=== PATIENT | male | born 1940 | race Caucasian/White ===

== ENCOUNTER → 2024-12-09 09:33 | Outpatient (REF) | payer MEDICARE, BC, SELFPAY | LOC: RCS 09:33 | PROVIDERS: ATTENDING PHYSICIAN Internal Medicine Cardiovascular Disease; FAMILY PHYSICIAN Family Medicine | DX: R06.02 Shortness of breath (principal) | CPT/HCPCS: 93306 ==

== ENCOUNTER → 2024-12-19 11:18 | Outpatient (REF) | payer MEDICARE, BC, SELFPAY ==
[2024-12-19 17:30] LABS: % Basophils 0.7 % (0-2); % Immature Granulocytes 0.4 % (0-0.5); % Lymphocytes 9.6 % (20.5-51.1); % Monocytes 16.7 % (1.7-9.3); % Neutrophils 66.6 % (42.2-75.2); Absolute Basophils 0.1 10^3/uL (0-0.2); Absolute Eosinophils 0.5 10^3/uL (0-0.7); Absolute Lymphocytes 0.8 10^3/uL (1.2-3.4); Absolute Monocytes 1.4 10^3/uL (0.1-0.6); Absolute Neutrophils 5.7 10^3/uL (1.4-6.5); Hematocrit 47.7 % (39.0-52.0); Hemoglobin 15.6 g/dL (13.0-18.0); Mean Corp Hgb Conc. 32.7 g/dL (33.0-37.0); Mean Corpuscular Volume 97.9 fL (80.0-94.0); Mean Platelet Volume 11.2 fL (7.4-10.4); Nucleated Red Blood Cells % 0 % (-); Platelet Count 167 10^3/uL (130-400); Red Blood Cell Count 4.87 10^6/uL (4.70-6.10); Red Cell Dist. Width 14.4 % (11.5-14.5); White Blood Cell Count 8.6 10^3/uL (4.8-10.8)
[2024-12-19 17:41] LABS: Blood Urea Nitrogen 25 mg/dl (9-20); Carbon Dioxide 28 mmol/L (22-30); Chloride 105 mmol/L (98-107); Glucose 86 mg/dl (70-99); HDL Cholesterol 39 mg/dl; LDL Cholesterol, Calculated 101 mg/dl; Sodium 142 mmol/L (135-145); Total Cholesterol 158 mg/dl (50-199); Triglyceride 93 mg/dl (10-149); Very Low Density Lipoprotein 18 mg/dl (0-30); eGFR 48.95
[2024-12-19 18:09] LABS: TSH Reflex To Free T4 1.49 uIU/ml (0.47-4.68)
== END ==
LOC: HWLAB 11:18
PROVIDERS: ATTENDING PHYSICIAN Internal Medicine Cardiovascular Disease; FAMILY PHYSICIAN Family Medicine
DX: E78.49 Other hyperlipidemia (principal); I49.5 Sick sinus syndrome; R06.02 Shortness of breath; I48.0 Paroxysmal atrial fibrillation; J44.9 Chronic obstructive pulmonary disease, unspecified; I89.0 Lymphedema, not elsewhere classified; R73.03 Prediabetes
CPT/HCPCS: 36415; 80048; 80061; 84443; 85025

== ENCOUNTER 2024-12-24 15:54 | Inpatient (IN) | payer MEDICARE, BC, SELFPAY ==
[2024-12-24 09:54] VITALS: BP 168/90
[2024-12-24 11:19] VITALS: BP 179/94
[2024-12-24 11:44] VITALS: BMI 27.5
[2024-12-24 12:19] LABS: % Basophils 0.4 % (0-2); % Eosinophils 6.4 % (0-6); % Immature Granulocytes 0.3 % (0-0.5); % Lymphocytes 13.5 % (20.5-51.1); % Monocytes 13.5 % (1.7-9.3); % Neutrophils 65.9 % (42.2-75.2); Absolute Eosinophils 0.5 10^3/uL (0-0.7); Absolute Lymphocytes 1.1 10^3/uL (1.2-3.4); Absolute Monocytes 1.1 10^3/uL (0.1-0.6); Absolute Neutrophils 5.2 10^3/uL (1.4-6.5); Hematocrit 46.5 % (39.0-52.0); Hemoglobin 15.7 g/dL (13.0-18.0); Mean Corp Hgb Conc. 33.8 g/dL (33.0-37.0); Mean Corpuscular Hgb 32.9 pg (27.0-31.0); Mean Corpuscular Volume 97.5 fL (80.0-94.0); Mean Platelet Volume 10.4 fL (7.4-10.4); Nucleated Red Blood Cells % 0 % (-); Platelet Count 163 10^3/uL (130-400); Red Blood Cell Count 4.77 10^6/uL (4.70-6.10); Red Cell Dist. Width 14.1 % (11.5-14.5); White Blood Cell Count 7.9 10^3/uL (4.8-10.8)
[2024-12-24 12:23] LABS: ALT (SGPT) 18 U/L (0-50); AST (SGOT) 24 U/L (17-59); Albumin 3.5 g/dl (3.5-5.0); Alkaline Phosphatase 71 U/L (38-126); Blood Urea Nitrogen 29 mg/dl (9-20); Calcium 8.9 mg/dl (8.4-10.2); Carbon Dioxide 29 mmol/L (22-30); Chloride 106 mmol/L (98-107); Estimated Creatinine Clearance 42 ml/min; Glucose 80 mg/dl (70-99); Potassium 5.5 mmol/L (3.5-5.1); Sodium 139 mmol/L (135-145); Total Bilirubin 1.2 mg/dl (0.2-1.3); eGFR 48.95
[2024-12-24 12:35] LABS: NT-proBNP 1280 pg/ml; Troponin I < 0.012 ng/ml
--- NOTE | 2024-12-24 12:40 | ED.GENMED ---
History of Present Illness
General
Chief Complaint: Breathing Problem
Time Seen by Provider: 12/24/24 11:26
History of Present Illness
History of Present Illness:
84-year-old male with history of A-fib on sotalol, sick sinus syndrome with pacemaker, NPH with shunt in place presenting for shortness of breath. Patient arrives with son who notes for the past 2 months patient has been having increased dyspnea on
exertion, which has been worsening in the past several days. Patient gets very short of breath with minimal exertion around the house. Son notes that he checked his pulse ox at home when he was walking and it was 81%. Patient does note chronic
lower extremity edema and intermittent compliance with his Lasix. Denies any known history of congestive heart failure. Denies chest pain. Reports some cough, however denies fever. Denies additional acute medical complaints.
Phy Exam
Physical Exam
Physical Exam:
General: Well-appearing, no clinical signs of dehydration, nontoxic and in no acute distress
HEENT: protecting airway
Neck: appears supple
CV: Normal heart rate, regular rhythm
Resp: No accessory muscle use, no increased work of breathing, lungs clear to auscultation bilaterally
Abd: Soft and non-distended, no tenderness to palpation
Extremities: No deformities, +2 pitting edema bilaterally
Neuro: alert, no focal neurologic deficit
: deferred
Rectal: deferred
Psych: Normal affect
Skin: Intact
Scores
Heart Failure Risk
Heart Failure Risk Score: Yes
History of Stroke or TIA: No
History of intubation for respiratory distress: No
Heart rate on ED arrival >/= 110: No
SaO2 <90% on arrival on room air: Yes
HR >/=110 during 3min walk test (or too ill to perform test): Yes
ECG has acute ischemic changes: No
Urea >/=12mmol/L (BUN 33.6mg/dL): No
Serum CO2>/=35mmol/L: No
Troponin I or T elevated to MT Level (0.4mg/dL): No
NT-proBNP >/=5,000ng/L (5,000pg/ml): No
HF Risk Score: 3
Admission Status: HIGH RISK 15.9% Consider SNF treatment or admission to hospital
Course
Orders/Labs/Results
Orders:
Orders
12/24/24 11:47
Electrocardiogram (*1) Stat
Reason for Study: Other
Other Reason for Exam: chest pain
EKG- Treatment ONCE
CR Chest - 2 Views Urgent
Comment:
Reason For Exam: VILA
12/24/24 11:49
Complete Blood Count/With Diff Urgent
Comprehensive Metabolic Panel Urgent
NT-proBNP Urgent
Troponin I Urgent
12/24/24 13:41
CT Chest PE Study Urgent
Comment:
Reason For Exam: SOB with exertion, hx afib, hypoxia at home
12/24/24 15:21
Furosemide [Lasix] 40 mg IV NOW STA
12/24/24 15:47
Admit/Transfer Patient As Directed
Co-Sign Provider:
Level of Care: Inpatient admission
Assign to:: Telemetry
Physician / Group: keanu
Diagnosis: chf exacerbation
Reason for Telemetry: Pulmonary Edema
Date to Stop Telemetry: 12/27/24
Time to Stop Telemetry: 11:00
Reason for Hospitalization: chf exacerbation
Expected length of stay greater than two midnights?: Yes
ELOS- Estimated Length of Stay in days: 2
I certify the patient meets the requirements for IP care: Yes
Code Status As Directed
Resuscitation Status: Full Code
PRN Pain Medication Management As Directed
May give lesser potent ordered pain med per pt: Yes
preference::
Protocol:: Medication orders for pain may be administered in a
manner that supports deferring to patient preference
when the pt is:
- Requesting an ordered lesser potent pain medication.
Least to most potent pain medications are defined
as: acetaminophen < NSAID < tramadol < opioids
(morphine, oxycodone, hydromorphone).
- Requesting a lesser dose of the same medication IF
ORDERED.
- Requesting a less intrusive route of administration
if both routes are prescribed by the provider (PO <
IV).
12/27/24 11:00
DC Protocol for Telemetry ONCE
Abnormal Lab Results
12/24/24
11:49
MCV 97.5 H fL
(80.0-94.0)
MCH 32.9 H pg
(27.0-31.0)
Absolute Lymphs (auto) 1.1 L 10^3/uL
(1.2-3.4)
Absolute Monos (auto) 1.1 H 10^3/uL
(0.1-0.6)
Lymphocytes % 13.5 L %
(20.5-51.1)
Monocytes % 13.5 H %
(1.7-9.3)
Eosinophils % 6.4 H %
(0-6)
Potassium 5.5 H mmol/L
(3.5-5.1)
BUN 29 H mg/dl
(9-20)
Creatinine 1.4 H mg/dL
(0.7-1.3)
Total Protein 6.0 L g/dl
(6.3-8.2)
12/24/24 11:49
12/24/24 11:49
Vital Signs
Initial and Last Documented VS:
Initial Vital Signs
Temp Pulse Resp BP Pulse Ox
97.6 F 63 20 168/90 88
12/24/24 09:54 12/24/24 09:54 12/24/24 09:54 12/24/24 09:54 12/24/24 09:54
Last Documented Vital Signs
Temp Pulse Resp BP Pulse Ox
97.6 F 90 16 166/99 94
12/24/24 09:54 12/24/24 15:25 12/24/24 14:30 12/24/24 15:25 12/24/24 12:30
MDM/Problems Addressed
MDM/Problems Addressed:
84-year-old male with history of A-fib on sotalol, sick sinus syndrome with pacemaker, NPH with shunt presenting for dyspnea on exertion. Vital signs are significant for hypertension.
On exam patient is resting comfortably, no acute distress. Symptom presentation is concerning for congestive heart failure given progressive dyspnea on exertion and known underlying cardiac issues, with apparent lower extremity edema. EKG
obtained, paced rhythm. Lower suspicion for infectious source, afebrile, notes very minimal cough. Patient denying any chest pain, without present concern for ACS. On review of EMR, recent outpatient echo 12/07 which showed preserved EF, tricuspid
regurgitation, severe pulmonary hypertension. Will plan for laboratory analysis and chest x-ray imaging
13:30 -patient's x-ray without evidence of volume overload, BNP is elevated. PE is a consideration, no anticoagulation with underlying history of A-fib. Will obtain a CT chest for rule out.
15:20 -CT PE is negative, however there is mention of increased pulmonary vascular markings. Clinically concern for congestive heart failure. Patient had acute desaturation in the ER, to the 80s, requiring O2. Plan for admission for diuresis,
cardiac monitoring, cardiac consultation
*EKG
Interpreted by ED Provider?: Yes
EKG Intrepretation Date: 12/24/24
EKG Intrepretation Time: 12:44
Interpretation: normal
Comparison EKG: no comparison EKG present
Heart Rate: 62
Rate: normal
Rhythm: sinus and other (atrial paced)
[place]: normal axis
QRS Pattern: right bundle branch block
Ischemia: no ischemia
*Critical Care Note
Total Time (30-74mins, 75-104mins- exclusive of procedures): Not Applicable
ED Attending Note
-
Portions of this chart may have been created with voice recognition software.� Occasional wrong word or��sound alike� substitutions may have occurred due to the inherent limitations of voice recognition software.
Discharge Plan
Departure
Patient Disposition: Admit
Date of Disposition: 12/24/24
Time of Disposition: 15:26
Presentation/result/management discussed w/ accepting MD/DO: Hospitalist
Patient with high blood pressure during this ER visit?: No
Condition: Fair
Discharge Problem:
Congestive heart failure, Hypoxia
Interventions
Interventions:
*Risk Screen - Suicide Last Done: 12/24/24 09:54
*General Assessment Last Done: 12/24/24 09:54
*Neglect/Abuse Screening Last Done: 12/24/24 11:44
*ED- Fall Risk Assessment Last Done: 12/24/24 11:44
*ED COVID-19 Vaccine History Last Done: 12/24/24 11:44
ED- Cardiac Assessment Last Done: 12/24/24 11:44
ED- Pulmonary Assessment Last Done: 12/24/24 11:44
[2024-12-24 15:25] VITALS: BP 166/99
[2024-12-24] MEDS: LASIX 40 MG IV (15:25)
--- NOTE | 2024-12-24 15:54 | HPS.HSE ---
Family Physician
-
Family Physician: Brennan Rome
Chief Complaint
-
shortness of breath
History of Present Illness
84-year-old male past medical history of atrial fibrillation, sick sinus syndrome status post pacemaker, severe pulm hypertension, COPD, normal pressure hydrocephalus, hypertension, BPH, dementia, with shunt presenting with shortness of breath.
Patient arrives with son who notes that for the past 2 months patient has been having increased shortness of breath with exertion which has been worsening in the past several days. Patient gets very shortness of breath with minimal exertion. Pulse
ox was 81%. Patient has chronic lower extreme edema and intermittently compliant with Lasix. No prior history of heart failure. No chest pain. Patient has some cough. No fever. He recently saw his student services director Dr. Lund who performed
echocardiogram.
He is a former smoker. Denies alcohol.
Medical History
Past Medical History
Past Medical History: Reports Other (atrial fibrillation, sick sinus syndrome status post pacemaker, severe pulm hypertension, COPD, normal pressure hydrocephalus, hypertension, BPH, dementia, with shunt )
Past Surgical History: Reports None
Social History
Tobacco: Non-smoker
Alcohol: None
Drug: None
Family History
Family History: Not pertinent
Allergies / Home Medications
Allergies reflects when Allergies were last updated in [facility].
Home Medications with original date entered in [facility]
Allergy/Medication List:
Allergies
Allergy/AdvReac Type Severity Reaction Status Date / Time
Horse/Equine Containing Allergy Unknown Verified 12/24/24 09:58
Products
Home Medications
Lactobac no.2-Bifidobac no.1-S. thermo 112.5 billion cell capsule (Visbiome) 1 cap PO DAILY 12/24/24
acetaminophen 325 mg tablet (Tylenol) 325 mg PO HS 12/24/24
albuterol sulfate 90 mcg/actuation aerosol inhaler 2 puff inhalation R Q6HPRN PRN sob 12/24/24
alfuzosin 10 mg tablet,extended release 24 hr 10 mg PO DAILY 12/24/24
amlodipine 2.5 mg tablet (Norvasc) 2.5 mg PO DAILY 12/24/24
cyanocobalamin (vitamin B-12) 1,000 mcg tablet 1,000 mcg PO DAILY 12/24/24
docusate sodium 100 mg capsule (Colace) 100 mg PO QPM 12/24/24
donepezil 10 mg tablet 10 mg PO DAILY 12/24/24
finasteride 5 mg tablet 5 mg PO DAILY 12/24/24
furosemide 40 mg tablet (Lasix) 40 mg PO [facility] 12/24/24
latanoprost 0.005 % eye drops 1 drp BOTH EYES HS 12/24/24
magnesium glycinate 100 mg (as glycinate) tablet 100 mg PO HS 12/24/24
metoprolol tartrate 25 mg tablet 25 mg PO BID 12/24/24
potassium chloride 10 mEq tablet,extended release 10 meq PO [facility] 12/24/24
rivaroxaban 20 mg tablet (Xarelto) 20 mg PO QPM 12/24/24
simethicone 80 mg chewable tablet 80 mg PO HS 12/24/24
sotalol 80 mg tablet 80 mg PO BID 12/24/24
therapeutic multivitamin 1 tab PO DAILY 12/24/24
umeclidinium 62.5 mcg-vilanterol 25 mcg/actuation powdr for inhalation (Anoro Ellipta) 1 inh inhalation R DAILY 12/24/24
Review of Systems
-
History Source: Patient
A 12 point ROS was completed and negative except as noted: Yes
Constitutional: Reports No Symptoms
EENT: Reports No Symptoms
Respiratory: Reports See HPI
Cardiac: Reports See HPI
Abdomen/GI: Reports No Symptoms
: Reports No Symptoms
Musculoskeletal: Reports No Symptoms
Skin: Reports No Symptoms
Neurological: Reports No Symptoms
Endocrine: Reports No Symptoms
Hematologic/Lymphatic: Reports No Symptoms
Psych: Reports No Symptoms
Physical Exam
Vital Signs
Vital Signs
Temp Pulse Resp BP Pulse Ox
97.6 F 90 16 166/99 94
12/24/24 09:54 12/24/24 15:25 12/24/24 14:30 12/24/24 15:25 12/24/24 12:30
Physical Exam
General: Well Developed, Well Nourished and No Apparent Distress
HEENT: NormoCephalic, Moist mucous membranes and Atraumatic
Respiratory: Clear
Cardiac: S1/S2, Regular Rhythm and Peripheral Edema; No Murmur or Rub
GI: Soft, Non Tender, Non Distended and Normal Bowel Sounds; No Organomegaly
Rectal: Deferred by Provider
Musculoskeletal: No Clubbing, No Cyanosis and No Edema
Skin: No Rash
Neuro: Nonfocal/grossly intact
Laboratory Results
-
12/24/24 11:49
12/24/24 11:49
Laboratory Results
Total Bilirubin 1.2 mg/dl (0.2-1.3) 12/24/24 11:49
AST 24 U/L (17-59) 12/24/24 11:49
ALT 18 U/L (0-50) 12/24/24 11:49
Alkaline Phosphatase 71 U/L (38-126) 12/24/24 11:49
Troponin I < 0.012 ng/ml 12/24/24 11:49
Data Reviewed
-
Lab Data: Labs Reviewed by me
Old Records: Reviewed
Impression/Plan
-
IMPRESSION:
PLAN:
# Acute CHF exacerbation due to Lasix noncompliant
# Severe pulmonary hypertension/moderate tricuspid regurgitation
- Cardiac BNP 1200
-EKG shows right bundle branch block, atrial paced rhythm
- Chest x-ray shows no acute process
- CT PE shows no evidence of central pulmonary embolism, pulm interstitial markings, mild nonspecific bilateral hilar and mediastinal lymphadenopathy,
- Check I's and O's, daily weights
- 40 IV Lasix daily
- Cardiology consulted
#Chronic kidney disease
# Hyperkalemia
-Monitor with diuresis
COPD
- Continue inhalers
Paroxysmal atrial fibrillation
- Continue sotalol, metoprolol
- Continue Xarelto
Sick sinus syndrome status post pacemaker
Essential hypertension
- Continue motor pain
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
BPH
- Continue alfuzosin, finasteride
Dementia
- Continue donepezil
Full code
DVT prophylaxis�Xarelto
Cardiac diet
--- NOTE | 2024-12-24 16:15 | CON.CAR ---
Addendum entered and electronically signed by Mendoza Lund DO 12/24/24 17:29:
I saw and examined the patient.
The Fur Blender's note was reviewed and I agree with the note.
Comment:
Patient presenting due to worsening shortness of breath and LE swelling. Notes chronic swelling however increased more recently. Patient recently diagnosed with pulmonary hypertension by echocardiogram however work-up as outpatient is on-going.
Patient denies cp, palpitations, lh, dizziness, near syncope, syncope, focal weakness, pnd or orthopnea. Patient follows with pulmonology for his COPD with planned office visit .
GENERAL: no acute distress
EYE: sclera anicteric
NECK: Supple, no JVD, no carotid bruit appreciated
ENT: normal nose, moist mucosal membranes; 2LNC
CARDIAC: Regular rate and rhythm, +S1/S2,1/6 systolic murmur; no rubs, or gallops
CHEST/PULMONARY: Normal effort, clear breath sounds, no audible wheeze, crackles
ABDOMEN: Soft, without focal tenderness or distention; nontender
NEUROLOGICAL: Alert and oriented x3
SKIN: Warm and dry, no rash; 3+ BL pitting edema
PSYCH: Normal and appropriate interaction.
Telemetry: APVS (RBBB); EKG APVS with RBBB
A/P as below
Patient presenting with acute on chronic shortness of breath with evidence of volume overload by BNP, imaging, and examination. Recent echocardiogram demonstrated normal heart function however was noted to have severe pulmonary hypertension with a
PAP of 81 mmHg and diastolic dysfunction with normal LVEF. Will plan for IV diuresis and begin workup for pulmonary hypertension while inpatient given worsening shortness of breath and elevated pressures. Once euvolemic, will likely plan for right
heart catheterization. Appreciate input by pulmonology regarding pulmonary hypertension as well. Further recommendations to follow testing and evaluation. Please maintain on telemetry, strict intake and outputs, daily weights. I spoke with
patient's daughter, Jackelyn, over the phone regarding his current condition and our plan regarding evaluation and treatment of his shortness of breath. Patient has evidence of volume overload as noted in this documentation and will plan for diuresis
and evaluation for pulmonary hypertension. As discussed in our office visits, pulmonary hypertension is likely the main auto crane driver for patient's shortness of breath and hypoxia however etiology at this time is still unknown. Patient's daughter, Jackelyn,
verbalized understanding, agreed with plan, and voiced appreciated our discussion. I took time to answer all questions.
Original Note:
Consultation
Consultation Request
Date/Time Consultation Requested: 12/24/24
Date/Time Consultation Performed: 12/24/24
Requesting Provider: Dr. Retana in the ER
Performing Provider: Dr. Lund
Reason for Consultation: Acute HF, PHTN
Medical History
-
History of Present Illness:
Patient came to [facility] ER today with acute on chronic SOB and is being admitted with acute HF and cardiology has been consulted. Patient was originally managed at [facility] and had a PPM placed at [place] in about 2012 per patient and then a generator change
09/2023. Patient says that he started with increased SOB a few months ago and originally he thought it was due to his device based on what he was told at a doctor's office. Patient was seen in our office last Monday and reviewed echo that showed PHTN
and patient was recommended PHTN work-up, but patient does not know if he has an appt at [facility] yet or not. Patient returned to the office on Monday for device reprogramming and thinks it made a less than 10% improvement. Patient says that his son
talked to a physician friend who recommended that patient go to the hospital with his ongoing SOB and to expedite his PHTN work-up. Patient thinks his LE edema is worse than baseline, but denies bloating and orthopnea. Patient has no known h/o
rheumatologic disease and has not seen a resort housekeeper, but is scheduled to see one in the office .
PMH:
Chronic HFpEF
PHTN
CKD 3a
COPD
Paroxysmal Afib
Chronic Xarelto OAC
Chronic sotalol therapy
HTN
[employer] PPM
Past Medical History
Past Medical History: Other (in HPI)
Past Surgical History: Cardiac ([employer] PPM)
Social History
Tobacco: Former Smoker
Alcohol: None
Drug: None
Living: Alone
Family History
Family History: Other (son with trisomy 21)
Allergies / Home Medications
Allergy/AdvReac Type Severity Reaction Status Date / Time
Horse/Equine Containing Allergy Unknown Verified 12/24/24 09:58
Products
�Medication �Instructions �Recorded �Confirmed �Type
Lactobac no.2-Bifidobac no.1-S. 1 cap PO DAILY 12/24/24 12/24/24 History
thermo 112.5 billion cell capsule
(Visbiome)
acetaminophen 325 mg tablet 325 mg PO HS 12/24/24 12/24/24 History
(Tylenol)
albuterol sulfate 90 mcg/actuation 2 puff inhalation R Q6HPRN PRN sob 12/24/24 12/24/24 History
aerosol inhaler
alfuzosin 10 mg tablet,extended 10 mg PO DAILY 12/24/24 12/24/24 History
release 24 hr
amlodipine 2.5 mg tablet (Norvasc) 2.5 mg PO DAILY 12/24/24 12/24/24 History
cyanocobalamin (vitamin B-12) 1,000 mcg PO DAILY 12/24/24 12/24/24 History
1,000 mcg tablet
docusate sodium 100 mg capsule 100 mg PO QPM 12/24/24 12/24/24 History
(Colace)
donepezil 10 mg tablet 10 mg PO DAILY 12/24/24 12/24/24 History
finasteride 5 mg tablet 5 mg PO DAILY 12/24/24 12/24/24 History
furosemide 40 mg tablet (Lasix) 40 mg PO [facility] 12/24/24 12/24/24 History
latanoprost 0.005 % eye drops 1 drp BOTH EYES HS 12/24/24 12/24/24 History
magnesium glycinate 100 mg (as 100 mg PO HS 12/24/24 12/24/24 History
glycinate) tablet
metoprolol tartrate 25 mg tablet 25 mg PO BID 12/24/24 12/24/24 History
potassium chloride 10 mEq 10 meq PO [facility] 12/24/24 12/24/24 History
tablet,extended release
rivaroxaban 20 mg tablet (Xarelto) 20 mg PO QPM 12/24/24 12/24/24 History
simethicone 80 mg chewable tablet 80 mg PO HS 12/24/24 12/24/24 History
sotalol 80 mg tablet 80 mg PO BID 12/24/24 12/24/24 History
therapeutic multivitamin 1 tab PO DAILY 12/24/24 12/24/24 History
umeclidinium 62.5 mcg-vilanterol 1 inh inhalation R DAILY 12/24/24 12/24/24 History
25 mcg/actuation powdr for
inhalation (Anoro Ellipta)
Review of Systems
-
History Source: Patient
All other systems: Negative unless noted
Physical Exam
Vital Signs
Temp Pulse Resp BP Pulse Ox
97.6 F 90 16 166/99 94
12/24/24 09:54 12/24/24 15:25 12/24/24 14:30 12/24/24 15:25 12/24/24 12:30
GEN: NAD. AAOx3
HEENT: EOMI, MMM, wearing glasses
LUNGS: 2 L NC. CTA B/L, no audible wheeze
CV: Reg, S1/S2, 1/6 syst LSB, no murmur
ABD: soft, BS+, NT, ND
EXT: +2-3 pitting edema B/L LE to the knees
NEURO: Gross non-focal
SKIN: No rash
Lab Results
12/24/24 11:49
12/24/24 11:49
Troponin I < 0.012 ng/ml 12/24/24 11:49
Cdl-N-Brqqtgcslih Pept 1280 pg/ml 12/24/24 11:49
Impression / Plan
-
PCP: Dr. Vilchis
Card: Dr. Jurado at [facility] and Dr. Lund at [facility]
Impression:
Admitted with SOB 12/24/24
Acute HFpEF
PHTN
CKD 3a
COPD
Paroxysmal Afib
Chronic Xarelto OAC
Chronic sotalol therapy
HTN
[employer] PPM
Hyperkalemia
Echo 12/09/2024: EF 50 to 55%, no WMA, pacemaker wire present in the right heart, moderate TR with severe PHTN and PAP 81 mmHg
Plan:
-Patient came to [facility] ER today with acute on chronic SOB and is being admitted with acute HF and cardiology has been consulted. Patient was originally managed at [facility] and had a PPM placed at [facility] in about 2012 per patient and then a generator change
09/2023. Patient says that he started with increased SOB a few months ago and originally he thought it was due to his device based on what he was told at a doctor's office. Patient was seen in our office last Monday and reviewed echo that showed PHTN
and patient was recommended PHTN work-up, but patient does not know if he has an appt at [facility] yet or not. Patient returned to the office on Monday for device reprogramming and thinks it made a less than 10% improvement. Patient says that his son
talked to a physician friend who recommended that patient go to the hospital with his ongoing SOB and to expedite his PHTN work-up. Patient thinks his LE edema is worse than baseline, but denies bloating and orthopnea. Patient has no known h/o
rheumatologic disease and has not seen a resort housekeeper, but is scheduled to see one in the office .
-ECG reviewed by me is A-paced and QTc 523 ms. Reviewed office ECG from 12/16/24 and QTc 513 ms A-paced.
-pro-BNP [address] chest suggests acute interstitial edema. Patient with +2-3 pitting B/L LE edema. Patient was given Lasix 40 mg IV x1 in the ER and notes increased urine output without change in SOB. Patient was taking Lasix 40 mg Su[facility] prior
to admission.
-Will diurese with Lasix 40 mg IV daily
-Check BMP daily
-Potassium 5.5 and expected to improve with diuresis.
-Cre 1.4 on 12/24/24 and known CKD 3a. Will follow
-Patient wearing 2 L NC, but was not using supplemental oxygen prior to admission.
-Patient was scheduled to see Pulm on 12/26/24 and will ask them to see him this admission.
-Start PHTN work-up with VQ scan in AM. Check rheumatology panel, ordered by me.
-Eventual RHC once diuresed
-Eventual recheck echo once diuresed
-Patient with paroxysmal Afib. Cont sotalol 80 mg BID. QTc 523 ms paced rhythm. QTC was 513 ms in the office 12/16/24. Recheck ECG in AM, ordered by me.
-Cont Lopressor 25 mg BID
-Outpatient dose of Xarelto 20 mg daily should be lowered to 15 mg daily, CrCl 49 calculated by me 12/24/24.
-Will ask [employer] to check PPM again 12/25/24
-Asked patient if we could call his daughter during HPI and he declined.
-Emptied and cleaned patient's urinal at his request.
[2024-12-24 17:33] VITALS: BP 155/93; BMI 25.0
[2024-12-24 17:50] VITALS: BMI 25.0
[2024-12-24] MEDS: XARELTO 15 MG PO (18:03)
[2024-12-24] MEDS: COLACE 100 MG PO (18:03)
[2024-12-24 19:23] VITALS: BP 144/84
[2024-12-24] MEDS: BETAPACE 80 MG PO (20:19)
[2024-12-24] MEDS: LOPRESSOR 25 MG PO (20:20)
[2024-12-24] MEDS: XALATAN OPHTHALMIC SOLUTION 1 DROP BOTH EYES (22:22)
[2024-12-24] MEDS: MYLICON 80 MG PO (22:22)
[2024-12-24] MEDS: MAG-TAB SR 84 MG PO (22:22)
[2024-12-24] MEDS: TYLENOL PO (22:24)
[2024-12-24 23:36] VITALS: BP 159/92
[2024-12-25 03:34] VITALS: BP 123/76
[2024-12-25 06:00] VITALS: BMI 24.6
[2024-12-25 07:02] LABS: % Basophils 0.7 % (0-2); % Eosinophils 6.1 % (0-6); % Immature Granulocytes 0.2 % (0-0.5); % Lymphocytes 13.1 % (20.5-51.1); % Monocytes 15.5 % (1.7-9.3); % Neutrophils 64.4 % (42.2-75.2); Absolute Basophils 0.1 10^3/uL (0-0.2); Absolute Eosinophils 0.5 10^3/uL (0-0.7); Absolute Lymphocytes 1.1 10^3/uL (1.2-3.4); Absolute Monocytes 1.3 10^3/uL (0.1-0.6); Absolute Neutrophils 5.2 10^3/uL (1.4-6.5); Hematocrit 44.9 % (39.0-52.0); Hemoglobin 15.2 g/dL (13.0-18.0); Mean Corp Hgb Conc. 33.9 g/dL (33.0-37.0); Mean Corpuscular Hgb 32.2 pg (27.0-31.0); Mean Corpuscular Volume 95.1 fL (80.0-94.0); Mean Platelet Volume 10.4 fL (7.4-10.4); Nucleated Red Blood Cells % 0 % (-); Platelet Count 159 10^3/uL (130-400); Red Blood Cell Count 4.72 10^6/uL (4.70-6.10); Red Cell Dist. Width 13.8 % (11.5-14.5); White Blood Cell Count 8.1 10^3/uL (4.8-10.8)
[2024-12-25 07:41] LABS: Erythrocyte Sed Rate 7 mm/hour (0-20)
[2024-12-25 08:09] VITALS: BP 125/77
[2024-12-25] MEDS: SPIRIVA RESPIMAT 2.5 MCG 2 PUFF INH (08:11)
[2024-12-25] MEDS: STRIVERDI RESPIMAT 2 PUFF INH (08:12)
[2024-12-25 08:14] LABS: C-Reactive Protein < 5.00 mg/L (0.0-10.00)
[2024-12-25 08:22] LABS: ALT (SGPT) 18 U/L (0-50); AST (SGOT) 24 U/L (17-59); Albumin 3.8 g/dl (3.5-5.0); Alkaline Phosphatase 76 U/L (38-126); Blood Urea Nitrogen 31 mg/dl (9-20); Carbon Dioxide 27 mmol/L (22-30); Chloride 103 mmol/L (98-107); Estimated Creatinine Clearance 43 ml/min; Glucose 77 mg/dl (70-99); Potassium 4.3 mmol/L (3.5-5.1); Sodium 140 mmol/L (135-145); Total Bilirubin 1.4 mg/dl (0.2-1.3); eGFR 48.95
--- NOTE | 2024-12-25 08:35 | W.PN.CARDCBS ---
Addendum entered and electronically signed by Tahir Ann MD 12/25/24 10:47:
I saw and examined the patient.
The VALUE ANALYST or PA's note was reviewed and I agree with the note.
Comment: General: Well developed, well nourished in NAD.
Neck: Supple, no JVD, HJR, carotids +2 B/L, no bruits bilaterally.
Heart: Non displaced PMI, RRR, no murmurs, No S3, S4, no rubs.
Lungs: scattered rhonchi
Extremities: No clubbing, cyanosis or edema bilaterally.
Neuro: Grossly nonfocal, awake, alert and oriented x3.
Will treat his CHF with IV Lasix. Device check was okay. He is for VQ scan and pulmonary consult today.
Original Note:
Today's Communication / Plan
-
Cont Lasix 40 mg IV daily
[employer] device checked again today, normal function of leads and device, no changes made
Pulm consult today
VQ scan today
Impression / Plan
-
PCP: Dr. Vilchis
Card: Dr. Jurado at [facility] and Dr. Lund at [facility]
Impression:
Admitted with SOB 12/24/24
Acute HFpEF
PHTN
CKD 3a
COPD
Paroxysmal Afib
Chronic Xarelto OAC
Chronic sotalol therapy
HTN
[employer] PPM
Hyperkalemia
Echo 12/09/2024: EF 50 to 55%, no WMA, pacemaker wire present in the right heart, moderate TR with severe PHTN and PAP 81 mmHg
Plan:
-Patient notes symptomatic improvement in LE edema, but no change in SOB. Weight is down 3 lbs overnight with Lasix 40 mg IV daily. Patient was taking Lasix 40 mg SuTuThSa prior to admission, but tells me on 12/25/24 that he was skipping doses PRN
appointments or activities and sometimes he would make the dose up the next day and sometimes not. Patient tells me that he will not take daily Lasix dose upon d/c because then he would never be able to do anything else. We talked about the lack of
a magical cure for fluid retention and that not taking a daily dose could lead to recurrent acute HF and hospitalization.
-Cre stable at 1.4 on labs reviewed by me 12/25/24
-Potassium improved from 5.5 on admission to 4.3 on labs reviewed by me 12/25/24
-Consulted Pulmonology, orders placed and TT sent by me 12/25/24. Appreciate Pulm seeing patient for PHTN, he previously had an appt to be seen 12/26/24, but is now admitted.
-EF 50-55% by echo 12/09/24.
-Outpatient dose of Lopressor 25 mg BID continued for now. Consider changing to Coreg or Toprol XL
-Patient is not chronically on SHERYL/ARB/ARNI/aldosterone antagonist and will not start until diuresed and PHTN sorted out.
-Relatively new to amlodipine 2.5 mg daily for PHTN
-Patient wearing 2 L NC, but was not using supplemental oxygen prior to admission.
-VQ scan scheduled for 12/25/24
-Rheumatology panel including EMILIANO IgG, scleroderma antibody and centromere antibody pending. ESR normal at 7 and CRP normal at less than 5.
-Eventual RHC once diuresed
-Eventual recheck echo once diuresed
-Patient with paroxysmal Afib. Cont sotalol 80 mg BID. QTc 523 ms paced rhythm. QTC was 513 ms in the office 12/16/24. Recheck ECG now, ordered by me.
-Outpatient dose of Xarelto 20 mg daily should be lowered to 15 mg daily, CrCl 45 calculated by me 12/2324.
-[employer] checked PPM again 12/25/24 and there was normal device and lead function, no arrhythmias, no changes were made to the device. Patient and daughter were seen in our office 12/16/24 and 12/17/24 to discuss possible generator change
after patient was previously seen by Dr. Jurado at [facility] and had generator change 09/2023. Patient and daughter thought that patient's SOB symptoms were from his device and wanted a generator change. Patient and daughter thought patient's device was on
recall, patient and daughter have been told at more than one office visit that the patient's device is not on advisory or recall from [employer]. Device clinic RN, Masha Mauricio, at [facility] made changes 11/08/24 and patient felt better, but then
felt worse at 11/26/24 office visit. Cardiology/electrophysiology does not believe that the patient's device is the cause or root of his SOB and patient was previously strongly recommended to follow-up with PHTN specialist and patient now admitted
to and work-up underway.
HPI: Patient came to [facility] ER today with acute on chronic SOB and is being admitted with acute HF and cardiology has been consulted. Patient was originally managed at [facility] and had a PPM placed at [place] in about 2013 per patient and then a generator
change 09/2023. Patient says that he started with increased SOB a few months ago and originally he thought it was due to his device based on what he was told at a doctor's office. Patient was seen in our office last Monday and reviewed echo that
showed PHTN and patient was recommended PHTN work-up, but patient does not know if he has an appt at [place] yet or not. Patient returned to the office on Monday for device reprogramming and thinks it made a less than 10% improvement. Patient says
that his son talked to a physician friend who recommended that patient go to the hospital with his ongoing SOB and to expedite his PHTN work-up. Patient thinks his LE edema is worse than baseline, but denies bloating and orthopnea. Patient has no
known h/o rheumatologic disease and has not seen a vice provost, but is scheduled to see one in the office .
Progress Note - [employer]
Subjective
Date of Service: December 25, 2024
LE edema is better, no change in SOB
Objective
Labs:
12/25/24 06:40
12/25/24 06:40
Labs
Hgb 15.2 g/dL (13.0-18.0) 12/25/24 06:40
Hct 44.9 % (39.0-52.0) 12/25/24 06:40
Plt Count 159 10^3/uL (130-400) 12/25/24 06:40
Sodium 140 mmol/L (135-145) 12/25/24 06:40
Potassium 4.3 mmol/L (3.5-5.1) 12/25/24 06:40
BUN 31 mg/dl (9-20) H 12/25/24 06:40
Creatinine 1.4 mg/dL (0.7-1.3) H 12/25/24 06:40
Glucose 77 mg/dl (70-99) 12/25/24 06:40
Troponins
12/24/24
11:49
Troponin I < 0.012
Vital Signs and I&O:
Vital Signs
Temp Pulse Resp BP Pulse Ox
97.4 F 60 16 125/77 97
12/25/24 08:09 12/25/24 08:15 12/25/24 08:15 12/25/24 08:09 12/25/24 08:15
Vital Signs
Temp Pulse Resp BP Pulse Ox
97.4 F 60 16 125/77 97
12/25/24 08:09 12/25/24 08:15 12/25/24 08:15 12/25/24 08:09 12/25/24 08:15
Intake & Output
12/23/24 12/24/24 12/25/24 12/26/24
06:59 06:59 06:59 06:59
Intake Total 240 / 240
Balance 240 / 240
Physical Exam
Physical Exam
GEN: NAD. AAOx3
HEENT: EOMI, MMM, wearing glasses
LUNGS: 2 L NC. No audible wheeze
CV: SR on tele.
ABD: ND
EXT: +1-2 pitting edema B/L LE to the knees
NEURO: Gross non-focal
SKIN: No rash
--- NOTE | 2024-12-25 09:05 | CON.PUL ---
Consultation
Consultation Request
Date/Time Consultation Requested: 12/25/24
Date/Time Consultation Performed: 12/25/24
Performing Provider: Brenton
Reason for Consultation: SOB
Medical History
-
History of Present Illness:
Patient is an 84-year-old male with previous history of paroxysmal A-fib, sick sinus syndrome status post pacemaker, COPD, hypertension presenting to ER for shortness of breath of the past 2 months. He feels that this has progressively been
worsening. He does have chronic shortness of breath at baseline, following with Dr. Denton in the office for COPD. Most recent PFT demonstrating moderate obstruction he is maintained on Anoro and albuterol as needed. He does notice more lower
extremity edema, he has been avoiding urination as it is 'inconvenient' to use the bathroom frequently. CT demonstrating possible pulmonary edema, proBNP 1280 on admission. Echocardiogram completed demonstrating severe pulmonary hypertension but
no prior echo for comparison.
Past Medical History
Past Medical History: Other (See list below)
Social History
Tobacco: Former Smoker
Alcohol: None
Drug: None
Family History
Family History: Reviewed & Not Pertinent
Allergies / Home Medications
Allergies
Allergy/AdvReac Type Severity Reaction Status Date / Time
Horse/Equine Containing Allergy Unknown Verified 12/24/24 09:58
Products
Home Medications
�Medication �Instructions �Recorded �Confirmed �Last Taken �Type
Lactobac no.2-Bifidobac no.1-S. 1 cap PO DAILY Supplement 12/24/24 12/24/24 12/24/24 History
thermo 112.5 billion cell capsule
(Visbiome)
acetaminophen 325 mg tablet 325 mg PO HS Pain 12/24/24 12/24/24 12/23/24 History
(Tylenol)
albuterol sulfate 90 mcg/actuation 2 puff inhalation R Q6HPRN PRN sob 12/24/24 12/24/24 Unknown History
aerosol inhaler
alfuzosin 10 mg tablet,extended 10 mg PO DAILY BPH 12/24/24 12/24/24 12/24/24 History
release 24 hr
amlodipine 2.5 mg tablet (Norvasc) 2.5 mg PO DAILY Blood Pressure 12/24/24 12/24/24 12/24/24 History
cyanocobalamin (vitamin B-12) 1,000 mcg PO DAILY Supplement 12/24/24 12/24/24 12/24/24 History
1,000 mcg tablet
docusate sodium 100 mg capsule 100 mg PO QPM STOOL SOFTENER 12/24/24 12/24/24 12/23/24 History
(Colace)
donepezil 10 mg tablet 10 mg PO DAILY Mental 12/24/24 12/24/24 12/24/24 History
Health/Anxiety
finasteride 5 mg tablet 5 mg PO DAILY BPH 12/24/24 12/24/24 12/24/24 History
furosemide 40 mg tablet (Lasix) 40 mg PO SUTUTHSA Fluid 12/24/24 12/24/24 Unknown History
Retention/Swelling
latanoprost 0.005 % eye drops 1 drp BOTH EYES HS Eye Condition 12/24/24 12/24/24 12/23/24 History
magnesium glycinate 100 mg (as 100 mg PO HS Supplement 12/24/24 12/24/24 12/23/24 History
glycinate) tablet
metoprolol tartrate 25 mg tablet 25 mg PO BID Blood Pressure 12/24/24 12/24/24 12/24/24 History
potassium chloride 10 mEq 10 meq PO SUTUTHSA Supplement 12/24/24 12/24/24 12/24/24 History
tablet,extended release
rivaroxaban 20 mg tablet (Xarelto) 20 mg PO QPM Blood Clot 12/24/24 12/24/24 12/23/24 History
Prevention/Tx
simethicone 80 mg chewable tablet 80 mg PO HS Gastrointestinal Issue 12/24/24 12/24/24 12/23/24 History
sotalol 80 mg tablet 80 mg PO BID Blood Pressure 12/24/24 12/24/24 12/24/24 History
therapeutic multivitamin 1 tab PO DAILY Supplement 12/24/24 12/24/24 12/24/24 History
umeclidinium 62.5 mcg-vilanterol 1 inh inhalation R DAILY 12/24/24 12/24/24 12/24/24 History
25 mcg/actuation powdr for Lung/Breathing Issues
inhalation (Anoro Ellipta)
Review of Systems
-
History Source: Patient
All other systems: Negative unless noted
Vitals / Labs / Diagnostic Testing
Vital Signs
Temp Pulse Resp BP Pulse Ox
97.4 F 60 16 125/77 97
12/25/24 08:09 12/25/24 08:15 12/25/24 08:15 12/25/24 08:09 12/25/24 08:15
Lab Data
12/25/24 06:40
12/25/24 06:40
Diagnostic Testing:
Physical Exam
-
HEENT: Normocephalic, Anicteric and Moist Mucous Membranes
Cardiovascular: S1/S2 and Regular Rhythm
Respiratory: Rales and Non-Labored Respirations
GI: Soft, Non Distended and Non Tender
Neurology: Awake, Alert, Oriented and No Motor Deficits
Skin: Warm, Dry and Good Color
General: Comfortable and Other (NAD)
Assessment
-
Patient is an 84-year-old male with previous history of paroxysmal A-fib, sick sinus syndrome status post pacemaker, COPD, hypertension presenting to ER for shortness of breath of the past 2 months. He feels that this has progressively been
worsening. He does have chronic shortness of breath at baseline, following with Dr. Denton in the office for COPD. Most recent PFT demonstrating moderate obstruction he is maintained on Anoro and albuterol as needed. He does notice more lower
extremity edema, CT demonstrating possible pulmonary edema, proBNP 1280 on admission. Echocardiogram completed demonstrating severe pulmonary hypertension but no prior echo for comparison. We are consulted for evaluation.
Suspect acute HFpEF
Severe pulmonary hypertension on ECHO
LE edema
CT with vascular congestion
SOB, acute on chronic
Hyperkalemia
MICHELLE, creatinine 1.4 (prior baseline 1.2)
Conditions present MASSEUR/MASSEUSE
Moderate-severe COPD- follows with Dr Denton
Anoro, albuterol--last PFT FEV1 range 42%-82% (in the past 2 years, most recent Spirometry 11/08/24-FEV1 1.8-69%)
Chronic SOB - multifactorial including COPD, cardiac, chronotropic incompetence, deconditioning.
6 minute walk test previously did not reveal need for exertional supplemental oxygen.
Former smoker: 88-45-knuh-year-quit 42 years old
PAF
SSS s/p PPM
Normal pressure hydrocephalus
GERD
Prediabetes
Plan
No oxygen was needed on admission, currently saturating >90% on RA
He has had prior 6MWT not showing need for o2 at home in the past
Prior history of lung disease is noted including moderate COPD, past PFTs are noted below (OP records reviewed extensively)
Has been maintained on Anoro, albuterol
He feels his SOB is more than usual
Suspect patient has acute HFpEF given edema/proBNP/images
CXR/CT obtained indicating possible vascular congestion but no other overt findings, VTE ruled out
Other imaging reviewed--normal in comparison
proBNP 1280
ECHO results reviewed, he has no prior for comparison
Severe PH noted--ongoing w/u including OP sleep study, rheum panel
Cards following
Would agree with eventual RHC, this was discussed with team
Deconditioning could also be a factor
PT/OT evals
Will need outpatient pulmonary evaluation in our office for PFTs and 6MWT
Will need to reschedule appt scheduled for tomorrow 12/26
Reviewed with patient
We will follow
Diagnostic Data
Chest X-Ray: 12/24/24- No acute cardiopulmonary process.
07/11/22- No acute disease of the chest.
CT Scan: CHEST 12/24/24- No evidence of central pulmonary embolism. Pulmonary interstitial markings at least top normal, cannot exclude mild acute interstitial edema or acute interstitial pneumonitis.
Mild nonspecific bilateral hilar and mediastinal lymphadenopathy. Inflammatory/infectious etiology versus malignancy cannot be differentiated.
Echo: 12/09/24- Technically fair study, off axis views. Normal left ventricular size and systolic function. No regional wall motion abnormalities are seen. Abnormal (paradoxical) septal motion consistent with RV pacemaker. LV ejection fraction is
50-55%. Pacemaker wire present in the right heart. Moderate tricuspid regurgitation. Severe pulmonary hypertension estimated pulmonary artery pressure of 81 mmHg. No prior study for comparison
PFT's: Spirometry 03/23/22-FEV1 1.13 L-42%, FVC 2.16 L, 56%, no significant BD response. Moderate to severe obstruction.
PFT 06/08/22-FEV1 1.99 L-71%, FVC 3.56 L-89%, no significant BD response, TLC 85%, RV 90%, DLCO 37%. Mild obstruction and severe reduction in diffusing capacity.
Spirometry 10/12/22-FEV1 1.66 L-61%, FVC 2.96-77%. Moderate obstruction.
PFT 04/26/23-FEV1 2.12-80%, FVC 4.21-110%, no significant BD response, TLC 97%, RV 81%, DLCO 40%, DLCO/VA 48%. Mild obstruction and moderate reduction in diffusing capacity.
Spirometry 10/05/23-FEV1 1.6-61%, FVC 2.6-69%, no significant BD response. Moderate obstruction.
PFT 05/07/24-FEV1 2.14-82%, FVC 4.2,-112%, no significant BD response, TLC 93%, RV 76%, DLCO 35%, DLCO/VA 41%. Mild obstruction and moderate to severe reduction in diffusing capacity.
Spirometry 11/08/24-FEV1 1.8-69%, FVC 3.16-84%, no significant BD response. Moderate obstruction.
6 minute walk test 03/23/22-Ambulated 650 feet with a desaturation wil 90% maximum heart rate of 74. Maximum dyspnea scale score 1. No supplemental oxygen required.
6 minute walk test 04/26/23-Ambulated 600 feet with a desaturation wil of 94% maximum heart rate of 73. Maximum dyspnea scale score 3. No supplemental oxygen needed.
6 minute walk test 05/07/24-ambulated 600 feet with desaturation wil 89%. Maximum heart rate was 71. Maximum dyspnea scale score 3.0. No supplemental oxygen required.
Reports and relevant images were personally reviewed.
Total time spent on this consultation __81__ minutes which includes review of history, physical exam, medications, laboratory data, personal review of imaging, extensive review of outpatient records, discussion with care team and respiratory therapy.
[2024-12-25] MEDS: BETAPACE 80 MG PO ×2 (09:15→20:16)
[2024-12-25] MEDS: ARICEPT 10 MG PO (09:15)
[2024-12-25] MEDS: NORVASC 2.5 MG PO (09:15)
[2024-12-25] MEDS: VITAMIN B-12 1000 MCG PO (09:15)
[2024-12-25] MEDS: THERAGRAN 1 TABLET PO (09:15)
[2024-12-25] MEDS: LOPRESSOR 25 MG PO ×2 (09:15→20:16)
[2024-12-25] MEDS: PROSCAR 5 MG PO (09:16)
[2024-12-25] MEDS: LASIX 40 MG IV (09:16)
[2024-12-25] MEDS: VISBIOME 1 CAP PO (09:16)
[2024-12-25] MEDS: FLOMAX 0.4 MG PO (09:16)
[2024-12-25 11:46] VITALS: BP 101/72
--- NOTE | 2024-12-25 14:11 | W.CARD.DEVCH ---
Cardiac Device Check
-
Device: Pacemaker
Side Puller: [employer]
The patient's device was interrogated with assistance of the device in store representative followed by a complete physician review. The device had normal function. No abnormalities seen.
[employer] PPM checked today, no device changes made, normal device and lead function, arrhythmia.
--- NOTE | 2024-12-25 14:26 | W.PN.HOSP.TC ---
Today's Communication/Plan
-
Assessment / Plan
Assessment / Plan
General: No Apparent Distress, Comfortable and Conversant
HEENT: Nasal cannula in place, Moist mucous membranes, right-sided ROBOTICS APPLICATION ENGINEER shunt in place
Respiratory: Clear and Non Labored Respirations
Cardiac: S1/S2 and Regular Rhythm; No Rub or Gallop
GI: Soft, Non Tender, Non Distended and Normal Bowel Sounds
Musculoskeletal: Lower extremity edema, no deformity
Skin: Warm and dry
: NO Herbert
Neuro: Awake, Alert, Nonfocal/grossly intact
Psych: Calm and Intact Judgment/Insight
Mr. Duckworth is an 84-year-old male with a medical history of COPD, normal pressure hydrocephalus (ROBOTICS APPLICATION ENGINEER shunt in place), A-fib (on Xarelto), sick sinus syndrome (PPM), hypertension, CKD stage IIIa, and chronic lower extremity edema who presented with
worsening dyspnea on exertion. He follows closely with his outpatient international banker for COPD. He has been intermittently adherent with his Lasix regimen for his lower extremity edema because it is inconvenient to have to urinate so frequently. He
has previously been evaluated for supplemental oxygen needs and was found not to require supplemental oxygen. Recent echo showed preserved ejection fraction with severe pulmonary hypertension and moderate tricuspid regurgitation. He was admitted
for further evaluation and management of suspected acute HFpEF and pulmonary hypertension.
Acute HFpEF:
- Continue diuresis with IV Lasix 40 mg daily, monitor I's and O's and daily weights
- Eventual right heart cath for further evaluation of severe pulmonary hypertension
- Recheck echocardiogram after adequate diuresis
- Continue beta-blockade with home metoprolol tartrate 25 mg twice daily
- Holding afterload reducing agents until diuresed and further worked up for pulmonary hypertension
- Appreciate cardiology and pulmonology input
- Supplemental oxygen as needed, currently on 2 L via nasal cannula, titrate as able
Pulmonary hypertension:
- Severe on recent echo 12/09/2024
- Rheumatology panel including EMILIANO, IgG, scleroderma antibody, and centromere antibody pending
- Follow-up right heart cath
- Appreciate cardiology and pulmonology input
- VQ scan pending
COPD:
- Continue scheduled inhalers with additional as needed
A-fib:
- Continue Xarelto and appropriately reduced dose of 15 mg nightly
- Rate control with metoprolol tartrate 25 mg p.o. twice daily
Enlarged prostate:
- Continue tamsulosin and finasteride
- Monitor for urinary retention
CODE STATUS: Full code
Anticipated Discharge: > 48 hours
Subjective/Interval History
-
Date of Service: December 25, 2024
Patient was seen and examined at bedside this morning. Still experiencing dyspnea with minimal exertion. Diuresing well.
Objective Data
-
Labs:
Laboratory Results
12/25/24
06:40
WBC 8.1
Hgb 15.2
Hct 44.9
Plt Count 159
Sodium 140
Potassium 4.3
Chloride 103
Carbon Dioxide 27
BUN 31 H
Creatinine 1.4 H
Glucose 77
Calcium 9.0
Total Bilirubin 1.4 H
AST 24
ALT 18
Alkaline Phosphatase 76
Vital Signs:
Vital Signs
Temp Pulse Resp BP Pulse Ox
98.3 F 62 18 101/72 94
12/25/24 11:46 12/25/24 11:46 12/25/24 11:46 12/25/24 11:46 12/25/24 11:46
I&O
12/24/24 12/25/24 12/26/24
06:59 06:59 06:59
Intake Total 240 / 240
Balance 240 / 240
Review of Systems
-
History Source: Patient
All other systems: Reviewed and negative
Respiratory: Reports Trouble Breathing
Physical Exam
-
General: No Apparent Distress
[2024-12-25 15:53] VITALS: BP 155/80
--- NOTE | 2024-12-25 16:47 | CM ---
Met with patient to obtain information for assessment. Patient stated that he lives in a single home, all one level with his disabled son. His daughter lives close and she is supportive. Patient has been independent with his ADLs, personal care,
dressing and bathing. 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 Patient has not had VN. He has not been to a SNF in the past. He has a cane, walker, and w/c but all for his son. He does not have home o2.
Patient has a prescription plan and uses, [facility] for al of his medications.
Patient's PCP is, Axel Harrell.
Plan: Case management will continue to follow and assist with discharge planning. Will watch for o2 needs.
[2024-12-25] MEDS: XARELTO 15 MG PO (16:53)
[2024-12-25] MEDS: COLACE 100 MG PO (17:28)
--- NOTE | 2024-12-25 17:50 | PTCARENOTE ---
Pulse ox on room air 85%. Patient kept on 2L NC with pulse ox 94%.
[2024-12-25 19:43] VITALS: BP 154/87
[2024-12-25] MEDS: MYLICON 80 MG PO (22:02)
[2024-12-25] MEDS: MAG-TAB SR 84 MG PO (22:02)
[2024-12-25] MEDS: XALATAN OPHTHALMIC SOLUTION 1 DROP BOTH EYES (22:02)
[2024-12-25] MEDS: TYLENOL PO (22:11)
[2024-12-25 23:55] VITALS: BP 130/72
[2024-12-26] VITALS (7 sets, daily range): BP systolic 103–129; BP diastolic 64–90; BMI 24.7
--- NOTE | 2024-12-26 06:26 | DOWNTIME ---
There was a [employer] Client Carpenter Inspector Downtime on 12/26/2024 from 0200 to 12/27/2023 at 0318 . Downtime documentation of patient's care, including medication administrations, has been reconciled in the electronic record per guidelines. Refer to the
patient's paper chart under the miscellaneous tab to see printed paper medication records and downtime forms.
[2024-12-26] MEDS: FLOMAX 0.4 MG PO (07:53)
[2024-12-26] MEDS: BETAPACE 80 MG PO ×2 (07:53→20:23)
[2024-12-26] MEDS: VISBIOME 1 CAP PO (07:53)
[2024-12-26] MEDS: NORVASC 2.5 MG PO (07:53)
[2024-12-26] MEDS: THERAGRAN 1 TABLET PO (07:54)
[2024-12-26] MEDS: LOPRESSOR 25 MG PO ×2 (07:54→20:23)
[2024-12-26] MEDS: PROSCAR 5 MG PO (07:54)
[2024-12-26] MEDS: ARICEPT 10 MG PO (07:54)
[2024-12-26] MEDS: LASIX IV (07:56)
[2024-12-26] MEDS: KCL 10 MEQ PO (08:03)
[2024-12-26] MEDS: SPIRIVA RESPIMAT 2.5 MCG 2 PUFF INH (08:09)
[2024-12-26] MEDS: STRIVERDI RESPIMAT 2 PUFF INH (08:09)
[2024-12-26] MEDS: VITAMIN B-12 1000 MCG PO (08:12)
[2024-12-26] MEDS: METAMUCIL, KONSYL 1 PACKET PO (08:16)
--- NOTE | 2024-12-26 09:08 | W.PN.PUL3 ---
Today's Communication / Plan
-
No new events, remains clinically unchanged
Planning for RHC in AM, follow up results
Eventual home O2 eval, can be done in AM
Continue inhalers/treatments for now, no need for steroid course
Diuresis IV per cards team, further management to be determined post cath
Assessment
-
Patient is an 84-year-old male with previous history of paroxysmal A-fib, sick sinus syndrome status post pacemaker, COPD, hypertension presenting to ER for shortness of breath of the past 2 months. He feels that this has progressively been
worsening. He does have chronic shortness of breath at baseline, following with Dr. Denton in the office for COPD. Most recent PFT demonstrating moderate obstruction he is maintained on Anoro and albuterol as needed. He does notice more lower
extremity edema, CT demonstrating possible pulmonary edema, proBNP 1280 on admission. Echocardiogram completed demonstrating severe pulmonary hypertension but no prior echo for comparison. We are consulted for evaluation.
Suspect acute HFpEF
Severe pulmonary hypertension on ECHO
LE edema
CT with vascular congestion
SOB, acute on chronic
Hyperkalemia
MICHELLE, creatinine 1.4 (prior baseline 1.2)
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
Moderate-severe COPD- follows with Dr Denton
Anoro, albuterol--last PFT FEV1 range 42%-82% (in the past 2 years, most recent Spirometry 11/08/24-FEV1 1.8-69%)
Chronic SOB - multifactorial including COPD, cardiac, chronotropic incompetence, deconditioning.
6 minute walk test previously did not reveal need for exertional supplemental oxygen.
Former smoker: [id number]-quit 42 years old
PAF
SSS s/p PPM
Normal pressure hydrocephalus
GERD
Prediabetes
Plan
No oxygen was needed on admission, currently saturating >90% on RA
He has had prior 6MWT not showing need for o2 at home in the past
Eventual home O2 eval pending cath for AM
Prior history of lung disease is noted including moderate COPD, past PFTs are noted below (OP records reviewed extensively)
Has been maintained on Anoro, albuterol
He feels his SOB is more than usual
Suspect patient has acute HFpEF given edema/proBNP/images
CXR/CT obtained indicating possible vascular congestion but no other overt findings, VTE ruled out
Other imaging reviewed--normal in comparison
proBNP 1280
ECHO results reviewed, he has no prior for comparison
Severe PH noted--ongoing w/u including OP sleep study, rheum panel
Cards following
Would agree with eventual RHC, this was discussed with team
Planning in AM 12/27
Deconditioning could also be a factor
PT/OT evals
Will need outpatient pulmonary evaluation in our office for PFTs and 6MWT
Will need to reschedule appt scheduled for tomorrow 12/26
Reviewed with patient
Diagnostic Data
Chest X-Ray: 12/24/24- No acute cardiopulmonary process.
07/11/22- No acute disease of the chest.
CT Scan: CHEST 12/24/24- No evidence of central pulmonary embolism. Pulmonary interstitial markings at least top normal, cannot exclude mild acute interstitial edema or acute interstitial pneumonitis.
Mild nonspecific bilateral hilar and mediastinal lymphadenopathy. Inflammatory/infectious etiology versus malignancy cannot be differentiated.
Echo: 12/09/24- Technically fair study, off axis views. Normal left ventricular size and systolic function. No regional wall motion abnormalities are seen. Abnormal (paradoxical) septal motion consistent with RV pacemaker. LV ejection fraction is
50-55%. Pacemaker wire present in the right heart. Moderate tricuspid regurgitation. Severe pulmonary hypertension estimated pulmonary artery pressure of 81 mmHg. No prior study for comparison
PFT's: Spirometry 03/23/22-FEV1 1.13 L-42%, FVC 2.16 L, 56%, no significant BD response. Moderate to severe obstruction.
PFT 06/08/22-FEV1 1.99 L-71%, FVC 3.56 L-89%, no significant BD response, TLC 85%, RV 90%, DLCO 37%. Mild obstruction and severe reduction in diffusing capacity.
Spirometry 10/12/22-FEV1 1.66 L-61%, FVC 2.96-77%. Moderate obstruction.
PFT 04/26/23-FEV1 2.12-80%, FVC 4.21-110%, no significant BD response, TLC 97%, RV 81%, DLCO 40%, DLCO/VA 48%. Mild obstruction and moderate reduction in diffusing capacity.
Spirometry 10/05/23-FEV1 1.6-61%, FVC 2.6-69%, no significant BD response. Moderate obstruction.
PFT 05/07/24-FEV1 2.14-82%, FVC 4.2,-112%, no significant BD response, TLC 93%, RV 76%, DLCO 35%, DLCO/VA 41%. Mild obstruction and moderate to severe reduction in diffusing capacity.
Spirometry 11/08/24-FEV1 1.8-69%, FVC 3.16-84%, no significant BD response. Moderate obstruction.
6 minute walk test 03/23/22-Ambulated 650 feet with a desaturation wil 90% maximum heart rate of 74. Maximum dyspnea scale score 1. No supplemental oxygen required.
6 minute walk test 04/26/23-Ambulated 600 feet with a desaturation wil of 94% maximum heart rate of 73. Maximum dyspnea scale score 3. No supplemental oxygen needed.
6 minute walk test 05/07/24-ambulated 600 feet with desaturation wil 89%. Maximum heart rate was 71. Maximum dyspnea scale score 3.0. No supplemental oxygen required.
Reports and relevant images were personally reviewed.
Total time spent on this consultation __51__ minutes which includes review of history, physical exam, medications, laboratory data, personal review of imaging, extensive review of outpatient records, discussion with care team and respiratory therapy.
Subjective Data
-
Date of Service:
Date of Service: December 26, 2024
Chief Complaint: Pulmonary Follow Up
Subjective:
No new complaints, appears to lack insight into his condition
Short term memory issues as well
Objective Data
Data Reviewed
Vital Signs / I&O / Oxygen:
Vital Signs
Temp Pulse Resp BP Pulse Ox
97.4 F 81 18 129/90 91
12/26/24 07:23 12/26/24 08:13 12/26/24 08:13 12/26/24 07:23 12/26/24 08:13
Intake and Output
12/25/24 12/26/24 12/27/24
06:59 06:59 06:59
Intake Total 240 / 240 720 / 720
Balance 240 / 240 720 / 720
SaO2 91
Nasal Cannula flow liters per 2
minute
Physical Exam
General: Comfortable and Other (NAD)
HEENT: Normocephalic, Anicteric and Moist Mucous Membranes
Cardiovascular: S1-S2 and Regular Rhythm
Respiratory: Crackles (slight) and Non-Labored Respirations
GI: Soft, Non Distended and Non Tender
Neurology: Awake, Alert, Oriented (to self, place) and No Motor Deficits
Skin: Warm, Dry and Good Color
[2024-12-26 09:20] LABS: % Basophils 0.5 % (0-2); % Eosinophils 7.2 % (0-6); % Immature Granulocytes 0.3 % (0-0.5); % Lymphocytes 9.3 % (20.5-51.1); % Monocytes 14.3 % (1.7-9.3); % Neutrophils 68.4 % (42.2-75.2); Absolute Basophils 0.1 10^3/uL (0-0.2); Absolute Eosinophils 0.8 10^3/uL (0-0.7); Absolute Monocytes 1.5 10^3/uL (0.1-0.6); Absolute Neutrophils 7.1 10^3/uL (1.4-6.5); Hematocrit 49.5 % (39.0-52.0); Hemoglobin 16.7 g/dL (13.0-18.0); Mean Corp Hgb Conc. 33.7 g/dL (33.0-37.0); Mean Corpuscular Hgb 32.1 pg (27.0-31.0); Nucleated Red Blood Cells % 0 % (-); Platelet Count 181 10^3/uL (130-400); Red Blood Cell Count 5.21 10^6/uL (4.70-6.10); Red Cell Dist. Width 13.7 % (11.5-14.5); White Blood Cell Count 10.4 10^3/uL (4.8-10.8)
--- NOTE | 2024-12-26 09:40 | W.PN.CARDCBS ---
Addendum entered and electronically signed by Brody Valerio MD 12/26/24 15:48:
I saw and examined the patient.
The In Store Representative's note was reviewed and I agree with the note.
Comment: Briefly, 84-year-old man past medical history of atrial fibrillation on Xarelto and recently identified severe range pulmonary hypertension who presents for evaluation of dyspnea diagnosed with acute heart failure with preserved ejection
fraction
Tells me he is responding well to IV diuretics and that his lower extremity edema is improving
Would continue current Lasix dosing
Follow renal function, electrolytes and daily weights
Tentative plan for right heart catheterization tomorrow to delineate the etiology of his pulmonary hypertension
Rest per Katharine Ulrich
Original Note:
Today's Communication / Plan
-
RHC tomorrow
Echo tmorrow
Impression / Plan
-
PCP: Dr. Vilchis
Card: Dr. Jurado at [facility] and Dr. Lund at [facility]
Impression:
Admitted with SOB 12/24/24
Acute HFpEF
PHTN
CKD 3a
COPD
Paroxysmal Afib
Chronic Xarelto OAC
Chronic sotalol therapy
HTN
[employer] PPM
Hyperkalemia
Echo 12/09/2024: EF 50 to 55%, no WMA, pacemaker wire present in the right heart, moderate TR with severe PHTN and PAP 81 mmHg
Plan:
-Patient initially refused Lasix 40 mg IV 12/26/24 AM, but after we talked he is agreeable to take.
-Called and talked to patient's daughter, Jackelyn, for 13:47 min. We reviewed admission thus far and plans for RHC and repeat TTE 12/27/24 and she is in agreement.
-Case also reviewed with Pulm in the room 12/26/24 and they are in agreement with RHC and echo.
-Weight is up 1 lb overnight. Cont Lasix 40 mg IV daily. Patient would probably benefit from Lasix 40 mg IV BID, but he is already resisting the daily dose.
-Patient was taking Lasix 40 mg SuTuThSa prior to admission, but was skipping doses PRN appointments or activities and sometimes he would make the dose up the next day and sometimes not. Patient tells me that he will not take daily Lasix dose upon
d/c because then he would never be able to do anything else.
-Cre stable at 1.4 on labs reviewed by me 12/26/24
-Potassium improved from 5.5 on admission to 4.5 on labs reviewed by me 12/26/24
-EF 50-55% by echo 12/09/24. Recheck echo 12/28/23, ordered by me.
-Outpatient dose of Lopressor 25 mg BID continued for now. Consider changing to Coreg or Toprol XL
-Patient is not chronically on SHERYL/ARB/ARNI/aldosterone antagonist and will not start until diuresed and PHTN sorted out.
-Relatively new to amlodipine 2.5 mg daily for PHTN
-Patient wearing 2 L NC, but was not using supplemental oxygen prior to admission. Will assess for home oxygen prior to d/c.
-VQ scan negative for PE 12/25/24
-Rheumatology panel including EMILIANO IgG, scleroderma antibody and centromere antibody pending. ESR normal at 7 and CRP normal at less than 5.
-Patient with paroxysmal Afib. Cont sotalol 80 mg BID. QTc 523 ms paced rhythm. QTC was 513 ms in the office 12/16/24. Recheck ECG now, ordered by me.
-Outpatient dose of Xarelto 20 mg daily should be lowered to 15 mg daily, CrCl 45 calculated by me 12/2324.
-[employer] checked PPM again 12/25/24 and there was normal device and lead function, no arrhythmias, no changes were made to the device. Patient and daughter were seen in our office 12/16/24 and 12/17/24 to discuss possible generator change
after patient was previously seen by Dr. Jurado at [facility] and had generator change 09/2023. Patient and daughter thought that patient's SOB symptoms were from his device and wanted a generator change. Patient and daughter thought patient's device was on
recall, patient and daughter have been told at more than one office visit that the patient's device is not on advisory or recall from [employer]. Device clinic RN, Masha Mauricio, at [facility] made changes 11/08/24 and patient felt better, but then
felt worse at 11/26/24 office visit. Cardiology/electrophysiology does not believe that the patient's device is the cause or root of his SOB and patient was previously strongly recommended to follow-up with PHTN specialist and patient now admitted
to and work-up underway. Patient's daughter felt that patient's device is still some of the problem with patient's symptoms per out talk 12/26/24, will defer to EP.
HPI: Patient came to [facility] ER today with acute on chronic SOB and is being admitted with acute HF and cardiology has been consulted. Patient was originally managed at [facility] and had a PPM placed at [facility] in about 2013 per patient and then a generator
change 09/2023. Patient says that he started with increased SOB a few months ago and originally he thought it was due to his device based on what he was told at a doctor's office. Patient was seen in our office last Monday and reviewed echo that
showed PHTN and patient was recommended PHTN work-up, but patient does not know if he has an appt at [facility] yet or not. Patient returned to the office on Monday for device reprogramming and thinks it made a less than 10% improvement. Patient says
that his son talked to a physician friend who recommended that patient go to the hospital with his ongoing SOB and to expedite his PHTN work-up. Patient thinks his LE edema is worse than baseline, but denies bloating and orthopnea. Patient has no
known h/o rheumatologic disease and has not seen a finding fastener, but is scheduled to see one in the office .
Progress Note - Investigations Chief
Subjective
Date of Service: December 26, 2024
He did not want to take Lasix this morning, he is now willing. He does not like increased urinary frequency
Objective
Labs:
12/26/24 08:05
Labs
Hgb 16.7 g/dL (13.0-18.0) 12/26/24 08:05
Hct 49.5 % (39.0-52.0) 12/26/24 08:05
Plt Count 181 10^3/uL (130-400) 12/26/24 08:05
Sodium 140 mmol/L (135-145) 12/25/24 06:40
Potassium 4.3 mmol/L (3.5-5.1) 12/25/24 06:40
BUN 31 mg/dl (9-20) H 12/25/24 06:40
Creatinine 1.4 mg/dL (0.7-1.3) H 12/25/24 06:40
Glucose 77 mg/dl (70-99) 12/25/24 06:40
Troponins
12/24/24
11:49
Troponin I < 0.012
Vital Signs and I&O:
Vital Signs
Temp Pulse Resp BP Pulse Ox
97.4 F 81 18 129/90 91
12/26/24 07:23 12/26/24 08:13 12/26/24 08:13 12/26/24 07:23 12/26/24 08:13
Vital Signs
Temp Pulse Resp BP Pulse Ox
97.4 F 81 18 129/90 91
12/26/24 07:23 12/26/24 08:13 12/26/24 08:13 12/26/24 07:23 12/26/24 08:13
Intake & Output
12/24/24 12/25/24 12/26/24 12/27/24
06:59 06:59 06:59 06:59
Intake Total 240 / 240 720 / 720
Balance 240 / 240 720 / 720
Physical Exam
Physical Exam
GEN: NAD. AAOx3
HEENT: EOMI, MMM, wearing glasses
LUNGS: 2 L NC. No audible wheeze
CV: SR on tele.
ABD: ND
EXT: +1-2 pitting edema B/L LE to the knees
NEURO: Gross non-focal
SKIN: No rash
[2024-12-26 09:59] LABS: Blood Urea Nitrogen 32 mg/dl (9-20); Calcium 9.4 mg/dl (8.4-10.2); Carbon Dioxide 27 mmol/L (22-30); Chloride 99 mmol/L (98-107); Estimated Creatinine Clearance 43 ml/min; Glucose 89 mg/dl (70-99); Potassium 4.5 mmol/L (3.5-5.1); Sodium 138 mmol/L (135-145); eGFR 48.95
--- NOTE | 2024-12-26 10:17 | PTCARENOTE ---
Patient refused IV lasix this morning. Educated patient again regarding reason for lasix and CHF condition. Patient understands education but unwilling to take due to urinary frequency and incontinence. Hospitalist and cardiology made aware of
refusal.
[2024-12-26] MEDS: LASIX 40 MG IV (10:58)
--- NOTE | 2024-12-26 15:00 | W.PN.HOSP.TC ---
Today's Communication/Plan
-
Assessment / Plan
Assessment / Plan
General: No Apparent Distress, Comfortable and Conversant
HEENT: Nasal cannula in place, Moist mucous membranes, right-sided SHOT PEENING OPERATOR shunt in place
Respiratory: Clear and Non Labored Respirations
Cardiac: S1/S2 and Regular Rhythm; No Rub or Gallop
GI: Soft, Non Tender, Non Distended and Normal Bowel Sounds
Musculoskeletal: Lower extremity edema, no deformity
Skin: Warm and dry
: NO Herbert
Neuro: Awake, Alert, Nonfocal/grossly intact
Psych: Calm and Intact Judgment/Insight
Mr. Duckworth is an 84-year-old male with a medical history of COPD, normal pressure hydrocephalus (SHOT PEENING OPERATOR shunt in place), A-fib (on Xarelto), sick sinus syndrome (PPM), hypertension, CKD stage IIIa, and chronic lower extremity edema who presented with
worsening dyspnea on exertion. He follows closely with his outpatient insole filler for COPD. He has been intermittently adherent with his Lasix regimen for his lower extremity edema because it is inconvenient to have to urinate so frequently. He
has previously been evaluated for supplemental oxygen needs and was found not to require supplemental oxygen. Recent echo showed preserved ejection fraction with severe pulmonary hypertension and moderate tricuspid regurgitation. He was admitted
for further evaluation and management of suspected acute HFpEF and pulmonary hypertension.
Acute HFpEF:
- Continue diuresis with IV Lasix 40 mg daily, monitor I's and O's and daily weights
- Planning right heart cath tomorrow 12/27 for further evaluation of severe pulmonary hypertension
- Recheck echocardiogram tomorrow 12/27
- Continue beta-blockade with home metoprolol tartrate 25 mg twice daily
- Holding afterload reducing agents until diuresed and further worked up for pulmonary hypertension
- Appreciate cardiology and pulmonology input
- Supplemental oxygen as needed, currently on 2 L via nasal cannula, titrate as able, assess for home oxygen needs prior to discharge
Pulmonary hypertension:
- Severe on recent echo 12/09/2024
- Rheumatology panel including EMILIANO, IgG, scleroderma antibody, and centromere antibody pending
- Follow-up right heart cath planned for tom
- Appreciate cardiology and pulmonology input
- VQ scan shows no evidence of pulmonary emboli
COPD:
- Continue scheduled inhalers with additional as needed
A-fib:
- Continue Xarelto and appropriately reduced dose of 15 mg nightly
- Rate control with metoprolol tartrate 25 mg p.o. twice daily
Enlarged prostate:
- Continue tamsulosin and finasteride
- Monitor for urinary retention
CODE STATUS: Full code
Anticipated Discharge: > 48 hours
Subjective/Interval History
-
Date of Service: December 26, 2024
Patient was seen and examined at bedside this morning. No complaints other than feels he is peeing too frequently for comfort and he wants to increase his bowel regimen.
Objective Data
-
Labs:
Laboratory Results
12/26/24
08:05
WBC 10.4
Hgb 16.7
Hct 49.5
Plt Count 181
Sodium 138
Potassium 4.5
Chloride 99
Carbon Dioxide 27
BUN 32 H
Creatinine 1.4 H
Glucose 89
Calcium 9.4
Vital Signs:
Vital Signs
Temp Pulse Resp BP Pulse Ox
97.5 F 62 20 111/68 98
12/26/24 11:40 12/26/24 11:40 12/26/24 11:40 12/26/24 11:40 12/26/24 11:40
I&O
12/25/24 12/26/24 12/27/24
06:59 06:59 06:59
Intake Total 240 / 240 720 / 720
Balance 240 / 240 720 / 720
Review of Systems
-
History Source: Patient
All other systems: Reviewed and negative
Respiratory: Reports Trouble Breathing (Dyspnea on exertion)
Genitourinary: Reports Frequency (Due to Lasix)
Physical Exam
-
General: No Apparent Distress
[2024-12-26 17:12] LABS: ANA, IgG Reflex to HEp-2 None Detected (None Detected)
[2024-12-26] MEDS: XARELTO 15 MG PO (17:57)
[2024-12-26] MEDS: COLACE 100 MG PO (20:23)
[2024-12-26] MEDS: MAG-TAB SR 84 MG PO (21:21)
[2024-12-26] MEDS: TYLENOL 325 MG PO (21:21)
[2024-12-26] MEDS: MYLICON 80 MG PO (21:21)
[2024-12-26] MEDS: XALATAN OPHTHALMIC SOLUTION 1 DROP BOTH EYES (21:22)
[2024-12-26 23:51] LABS: Centromere Antibody 1 AU/mL (0-40); Scleroderma Antibody (Scl-70) 1 AU/mL (0-40)
[2024-12-27] VITALS (12 sets, daily range): BP systolic 107–160; BP diastolic 70–94; BMI 24.6
[2024-12-27 07:42] LABS: Blood Urea Nitrogen 36 mg/dl (9-20); Calcium 9.6 mg/dl (8.4-10.2); Carbon Dioxide 31 mmol/L (22-30); Chloride 98 mmol/L (98-107); Estimated Creatinine Clearance 35 ml/min; Glucose 96 mg/dl (70-99); Potassium 4.1 mmol/L (3.5-5.1); Sodium 139 mmol/L (135-145); eGFR 38.78
[2024-12-27] MEDS: FLOMAX 0.4 MG PO (08:00)
[2024-12-27] MEDS: VISBIOME 1 CAP PO (08:00)
[2024-12-27] MEDS: LOPRESSOR 25 MG PO ×2 (08:00→22:17)
[2024-12-27] MEDS: BETAPACE 80 MG PO ×2 (08:00→22:17)
[2024-12-27] MEDS: THERAGRAN 1 TABLET PO (08:00)
[2024-12-27] MEDS: VITAMIN B-12 1000 MCG PO (08:00)
[2024-12-27] MEDS: METAMUCIL, KONSYL 1 PACKET PO (08:01)
[2024-12-27] MEDS: NORVASC 2.5 MG PO (08:01)
[2024-12-27] MEDS: PROSCAR 5 MG PO (08:01)
[2024-12-27] MEDS: COLACE 100 MG PO ×2 (08:01→22:17)
[2024-12-27] MEDS: ARICEPT 10 MG PO (08:01)
[2024-12-27] MEDS: MIRALAX PO (08:05)
[2024-12-27 08:19] LABS: % Basophils 0.5 % (0-2); % Immature Granulocytes 0.4 % (0-0.5); % Lymphocytes 10.1 % (20.5-51.1); % Monocytes 17.1 % (1.7-9.3); % Neutrophils 65.9 % (42.2-75.2); Absolute Basophils 0.1 10^3/uL (0-0.2); Absolute Eosinophils 0.7 10^3/uL (0-0.7); Absolute Lymphocytes 1.1 10^3/uL (1.2-3.4); Absolute Monocytes 1.9 10^3/uL (0.1-0.6); Absolute Neutrophils 7.3 10^3/uL (1.4-6.5); Hematocrit 48.6 % (39.0-52.0); Hemoglobin 16.4 g/dL (13.0-18.0); Mean Corp Hgb Conc. 33.7 g/dL (33.0-37.0); Mean Corpuscular Hgb 32.4 pg (27.0-31.0); Mean Platelet Volume 10.5 fL (7.4-10.4); Nucleated Red Blood Cells % 0 % (-); Platelet Count 179 10^3/uL (130-400); Red Blood Cell Count 5.06 10^6/uL (4.70-6.10); Red Cell Dist. Width 13.8 % (11.5-14.5); White Blood Cell Count 11.1 10^3/uL (4.8-10.8)
[2024-12-27] MEDS: STRIVERDI RESPIMAT 2 PUFF INH (08:28)
[2024-12-27] MEDS: SPIRIVA RESPIMAT 2.5 MCG 2 PUFF INH (08:28)
--- NOTE | 2024-12-27 10:33 | CARDSERVDEF ---
Echocardiogram with Definity completed after protocol screening completed. Allergies verified.
Patent IV site: _R ANTECUBE____
IV site flushed with 0.9% NaCl pre and post administration.
Diluted bolus method utilized to enhance visualization of ventricular bueno.
Total volume given: _4___ mL
Patient tolerated all procedures well without complications.
[2024-12-27] MEDS: LASIX IV (11:45)
--- NOTE | 2024-12-27 14:27 | W.PN.HOSP.TC ---
Today's Communication/Plan
-
Assessment / Plan
Assessment / Plan
General: No Apparent Distress, Comfortable and Conversant
HEENT: Nasal cannula in place, Moist mucous membranes, right-sided TIRE FIXER shunt in place
Respiratory: No accessory muscle use, equal expansion bilaterally
Cardiac: Atrial paced rhythm, heart rate 60-80
GI: Soft, Non Tender, Non Distended and Normal Bowel Sounds
Musculoskeletal: Lower extremity edema, no deformity
Skin: Warm and dry
: NO Herbert
Neuro: Awake, Alert, Nonfocal/grossly intact
Psych: Calm and Intact Judgment/Insight
Mr. Duckworth is an 84-year-old male with a medical history of COPD, normal pressure hydrocephalus (TIRE FIXER shunt in place), A-fib (on Xarelto), sick sinus syndrome (PPM), hypertension, CKD stage IIIa, and chronic lower extremity edema who presented with
worsening dyspnea on exertion. He follows closely with his outpatient opener for COPD. He has been intermittently adherent with his Lasix regimen for his lower extremity edema because it is inconvenient to have to urinate so frequently. He
has previously been evaluated for supplemental oxygen needs and was found not to require supplemental oxygen. Recent echo showed preserved ejection fraction with severe pulmonary hypertension and moderate tricuspid regurgitation. He was admitted
for further evaluation and management of suspected acute HFpEF and pulmonary hypertension.
Acute HFpEF:
- Continue diuresis with IV Lasix 40 mg daily, monitor I's and O's and daily weights
- Planning right heart cath today 12/27 for further evaluation of severe pulmonary hypertension
- Recheck echocardiogram today 12/27
- Continue beta-blockade with home metoprolol tartrate 25 mg twice daily
- Holding afterload reducing agents until diuresed and further worked up for pulmonary hypertension
- Appreciate cardiology and pulmonology input
- Supplemental oxygen as needed, currently on 2 L via nasal cannula, titrate as able, assess for home oxygen needs prior to discharge
Pulmonary hypertension:
- Severe on recent echo 12/09/2024
- Rheumatology panel including EMILIANO, IgG, scleroderma antibody, and centromere antibody pending
- Follow-up right heart cath planned for tomorr
- Appreciate cardiology and pulmonology input
- VQ scan shows no evidence of pulmonary emboli
COPD:
- Continue scheduled inhalers with additional as needed
A-fib:
- Continue Xarelto and appropriately reduced dose of 15 mg nightly
- Rate and rhythm control with metoprolol tartrate 25 mg p.o. twice daily and sotalol 80 mg p.o. twice daily
Enlarged prostate:
- Continue tamsulosin and finasteride
- Monitor for urinary retention
CODE STATUS: Full code
Anticipated Discharge: > 48 hours
Subjective/Interval History
-
Date of Service: December 27, 2024
Patient was seen and examined just prior to transport for echocardiogram. Comfortable no complaints at this point. Also planning right heart cath today.
Objective Data
-
Labs:
Laboratory Results
12/27/24
07:01
WBC 11.1 H
Hgb 16.4
Hct 48.6
Plt Count 179
Sodium 139
Potassium 4.1
Chloride 98
Carbon Dioxide 31 H
BUN 36 H
Creatinine 1.7 H
Glucose 96
Calcium 9.6
Vital Signs:
Vital Signs
Temp Pulse Resp BP Pulse Ox
97.9 F 62 20 107/70 95
12/27/24 11:07 12/27/24 11:07 12/27/24 11:07 12/27/24 11:07 12/27/24 11:07
I&O
12/26/24 12/27/24 12/28/24
06:59 06:59 06:59
Intake Total 720 / 720 400 / 400
Balance 720 / 720 400 / 400
Review of Systems
-
History Source: Patient
All other systems: Reviewed and negative
Physical Exam
-
General: No Apparent Distress
--- NOTE | 2024-12-27 14:54 | W.PN.UPDATE ---
Update Note
Progress Note Update
Patient has been off the floor for RHC, unable to see today
Will resume FU pending results
[2024-12-27] MEDS: XARELTO 15 MG PO (17:04)
--- NOTE | 2024-12-27 19:28 | ITS.CL.CATH ---
Station Engineer - Catheterization
Cardiac Catheterization
Procedure Report:
RIGHT HEART CATHETERIZATION
Date of Procedure: December 27, 2024
Referring: Brody Valerio
INDICATION: Assess invasive hemodynamics in the setting of pulmonary hypertension and worsening renal function
Hemodynamics (mmHg):
RA (m) : 10
RV (s/d,m) : 52/4, 11
PA (s/d, m) : 54/25, 35
PCWP (m) : 12
PA saturation: 67.9% on 2 L of oxygen via nasal cannula
AO saturation: 96% on 2 L of oxygen via nasal cannula
RA saturation: 69% on 2 L of oxygen via nasal cannula
Cardiac Output : 4.13 L/min by Huey calculation
Cardiac Index : 1.98 L/min/m-2 by Huey calculation
Systemic vascular resistance: 1801 dsc^(-5)
Pulmonary vascular resistance: 5.81 persaud unit
RADIATION SUMMARY: Fluoro Time (min): 4.9, dose (mGy): 33.3, DAP (Gy.cm2) : 5.6
CONCLUSION:
1. Significantly elevated right-sided filling pressures and severe pulmonary hypertension with normal pulmonary capillary wedge pressure.
2. Elevated systemic vascular resistance and pulmonary vascular resistance with reduced cardiac output.
Copy to: Brody Valerio
Lien Victor MD, FACC, [facility]
[2024-12-27] MEDS: TYLENOL 325 MG PO (22:17)
[2024-12-27] MEDS: MYLICON 80 MG PO (22:17)
[2024-12-27] MEDS: MAG-TAB SR 84 MG PO (22:17)
[2024-12-27] MEDS: XALATAN OPHTHALMIC SOLUTION 1 DROP BOTH EYES (22:18)
[2024-12-28] VITALS (10 sets, daily range): BP systolic 97–118; BP diastolic 58–86; PULSE 60–94; O2SAT 92–93; BMI 23.8
[2024-12-28 06:44] LABS: % Basophils 0.4 % (0-2); % Eosinophils 5.7 % (0-6); % Immature Granulocytes 0.3 % (0-0.5); % Monocytes 17.5 % (1.7-9.3); % Neutrophils 66.1 % (42.2-75.2); Absolute Eosinophils 0.5 10^3/uL (0-0.7); Absolute Monocytes 1.7 10^3/uL (0.1-0.6); Absolute Neutrophils 6.3 10^3/uL (1.4-6.5); Hematocrit 47.9 % (39.0-52.0); Hemoglobin 16.4 g/dL (13.0-18.0); Mean Corp Hgb Conc. 34.2 g/dL (33.0-37.0); Mean Corpuscular Hgb 32.3 pg (27.0-31.0); Mean Corpuscular Volume 94.5 fL (80.0-94.0); Mean Platelet Volume 10.5 fL (7.4-10.4); Nucleated Red Blood Cells % 0 % (-); Platelet Count 176 10^3/uL (130-400); Red Blood Cell Count 5.07 10^6/uL (4.70-6.10); Red Cell Dist. Width 13.6 % (11.5-14.5); White Blood Cell Count 9.5 10^3/uL (4.8-10.8)
[2024-12-28 07:04] LABS: Blood Urea Nitrogen 39 mg/dl (9-20); Carbon Dioxide 27 mmol/L (22-30); Chloride 101 mmol/L (98-107); Estimated Creatinine Clearance 43 ml/min; Glucose 87 mg/dl (70-99); Potassium 4.4 mmol/L (3.5-5.1); Sodium 139 mmol/L (135-145); eGFR 48.95
[2024-12-28] MEDS: SPIRIVA RESPIMAT 2.5 MCG 2 PUFF INH (08:04)
[2024-12-28] MEDS: STRIVERDI RESPIMAT 2 PUFF INH (08:04)
[2024-12-28] MEDS: LASIX 40 MG PO (09:01)
[2024-12-28] MEDS: BETAPACE 80 MG PO ×2 (09:02→20:45)
[2024-12-28] MEDS: COLACE 100 MG PO ×2 (09:02→20:45)
[2024-12-28] MEDS: NORVASC 2.5 MG PO (09:02)
[2024-12-28] MEDS: METAMUCIL, KONSYL 1 PACKET PO (09:02)
[2024-12-28] MEDS: FLOMAX 0.4 MG PO (09:02)
[2024-12-28] MEDS: LOPRESSOR 25 MG PO ×2 (09:02→20:45)
[2024-12-28] MEDS: PROSCAR 5 MG PO (09:02)
[2024-12-28] MEDS: ARICEPT 10 MG PO (09:02)
[2024-12-28] MEDS: VISBIOME 1 CAP PO (09:02)
[2024-12-28] MEDS: VITAMIN B-12 1000 MCG PO (09:02)
[2024-12-28] MEDS: MIRALAX PO (09:03)
[2024-12-28] MEDS: THERAGRAN 1 TABLET PO (09:03)
[2024-12-28] MEDS: KCL 10 MEQ PO (09:07)
--- NOTE | 2024-12-28 11:38 | W.PN.CARDCBS ---
Today's Communication / Plan
-
Transition to oral Lasix 40 mg daily and continue on discharge
We will sign off, please recall as needed
Outpatient pulmonary hypertension follow-up in our office to be arranged
Impression / Plan
-
PCP: Dr. Vilchis
Card: Dr. Jurado at [facility] and Dr. Lund at [facility]
Impression:
Admitted with SOB 12/24/24
Acute HFpEF
PHTN
CKD 3a
COPD
Paroxysmal Afib
Chronic Xarelto OAC
Chronic sotalol therapy
HTN
CallidusCloud PPM
Hyperkalemia
Echo 12/09/2024: EF 50 to 55%, no WMA, pacemaker wire present in the right heart, moderate TR with severe PHTN and PAP 81 mmHg
Plan:
-Presenting in acute heart failure with preserved ejection fraction and known severe range pulmonary pressures based on recent echo
-Weight is down significantly with IV diuresis
-Right heart catheterization on 12/27/2024 with normal pulmonary capillary wedge pressure of 12 mmHg and PA pressure 54/25 mmHg consistent with pulmonary hypertension
-Would transition to p.o. Lasix 40 mg daily and continue this on discharge
-Outpatient pulmonary hypertension follow-up within our office is to be arranged
We will sign off, please recall as needed
HPI: Patient came to [facility] ER today with acute on chronic SOB and is being admitted with acute HF and cardiology has been consulted. Patient was originally managed at [facility] and had a PPM placed at [place] in about 2013 per patient and then a generator
change 09/2023. Patient says that he started with increased SOB a few months ago and originally he thought it was due to his device based on what he was told at a doctor's office. Patient was seen in our office last Monday and reviewed echo that
showed PHTN and patient was recommended PHTN work-up, but patient does not know if he has an appt at [facility] yet or not. Patient returned to the office on Monday for device reprogramming and thinks it made a less than 10% improvement. Patient says
that his son talked to a physician friend who recommended that patient go to the hospital with his ongoing SOB and to expedite his PHTN work-up. Patient thinks his LE edema is worse than baseline, but denies bloating and orthopnea. Patient has no
known h/o rheumatologic disease and has not seen a fire control technician g, but is scheduled to see one in the office .
Progress Note - Facility Manager Histology
Subjective
Date of Service: December 28, 2024
No acute overnight events. Patient's resting comfortably. No cardiac complaints.
Objective
Labs:
12/28/24 06:17
12/28/24 06:17
Labs
Hgb 16.4 g/dL (13.0-18.0) 12/28/24 06:17
Hct 47.9 % (39.0-52.0) 12/28/24 06:17
Plt Count 176 10^3/uL (130-400) 12/28/24 06:17
Sodium 139 mmol/L (135-145) 12/28/24 06:17
Potassium 4.4 mmol/L (3.5-5.1) 12/28/24 06:17
BUN 39 mg/dl (9-20) H 12/28/24 06:17
Creatinine 1.4 mg/dL (0.7-1.3) H 12/28/24 06:17
Glucose 87 mg/dl (70-99) 12/28/24 06:17
Vital Signs and I&O:
Vital Signs
Temp Pulse Resp BP Pulse Ox
97.6 F 67 18 125/83 95
12/28/24 07:15 12/28/24 09:01 12/28/24 08:08 12/28/24 09:01 12/28/24 10:49
Vital Signs
Temp Pulse Resp BP Pulse Ox
97.6 F 67 18 125/83 95
12/28/24 07:15 12/28/24 09:01 12/28/24 08:08 12/28/24 09:01 12/28/24 10:49
Intake & Output
12/26/24 12/27/24 12/28/24 12/29/24
06:59 06:59 06:59 06:59
Intake Total 720 / 720 400 / 400
Balance 720 / 720 400 / 400
Physical Exam
Physical Exam
Gen: NAD, AA
HEENT: NC/AT, sclera anicteric
Neck: No JVD
CV: Irregularly irregular
Lungs: No increased work of breathing on 2 L nasal cannula
Abd: S/ND
Ext: No LE edema, right femoral access site clean dry intact
Skin: Warm, dry
Neuro: Non-focal
--- NOTE | 2024-12-28 13:02 | W.PN.PUL3 ---
Today's Communication / Plan
-
- Assess for Home O2
- Discharge planning
- if stays overnight, check overnight oximetry
- out patient follow up with Pulmonary service.
Assessment
-
Patient is an 84-year-old male with previous history of paroxysmal A-fib, sick sinus syndrome status post pacemaker, COPD, hypertension presenting to ER for shortness of breath of the past 2 months. He feels that this has progressively been
worsening. He does have chronic shortness of breath at baseline, following with Dr. Denton in the office for COPD. Most recent PFT demonstrating moderate obstruction he is maintained on Anoro and albuterol as needed. He does notice more lower
extremity edema, CT demonstrating possible pulmonary edema, proBNP 1280 on admission. Echocardiogram completed demonstrating severe pulmonary hypertension but no prior echo for comparison. We are consulted for evaluation.
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
Moderate-severe COPD- follows with Dr Denton
Anoro, albuterol--last PFT FEV1 range 42%-82% (in the past 2 years, most recent Spirometry 11/08/24-FEV1 1.8-69%)
Chronic SOB - multifactorial including COPD, cardiac, chronotropic incompetence, deconditioning.
6 minute walk test previously did not reveal need for exertional supplemental oxygen.
Former smoker: 70-57-elyz-year-quit 42 years old
PAF
SSS s/p PPM
Normal pressure hydrocephalus
GERD
Prediabetes
Assessment and Plan
#1. Severe pulmonary hypertension. PA 54/25 (mean 35), PCWP: 12, CI 1.98. PVR 5.8
-?etiology of PH
-Has h/o Moderate-severe COPD which could be contributing. Also has h/o CHF, however appears euvolemic now with normal PCWP
-CTEPH ruled out with normal VQ scan. CTD panel pending, less likely etiology at age 84 in a male patient
-Additional work up as out patient, 6 min walk test, PSG and PFTs etc.
-Assess for home O2 need. Supplemental O2 can help lower PA pressures if he qualifies. (target at least 90% considering PH)
-Overnight oximetry if patient staying tonight, otherwise can pursue as out patient.
-Further work up and management as out patient.
-Pulmonary vasodilators may not be well tolerated in this elderly gentleman, f/u with Cardiology service.
#2. Chronic HFpEF. Appears compensated.
- Resume home dose of lasix
- Out patient follow up with Cardiology service
#3. COPD with moderate obstructive airway disease.
-Resume follow up with Dr. Denton.
-No wheezing on exam today
-Currently on Spiriva, resume Anoro at discharge with PRN Albuterol.
Diagnostic Data
Chest X-Ray: 12/24/24- No acute cardiopulmonary process.
07/11/22- No acute disease of the chest.
CT Scan: CHEST 12/24/24- No evidence of central pulmonary embolism. Pulmonary interstitial markings at least top normal, cannot exclude mild acute interstitial edema or acute interstitial pneumonitis.
Mild nonspecific bilateral hilar and mediastinal lymphadenopathy. Inflammatory/infectious etiology versus malignancy cannot be differentiated.
Echo: 12/09/24- Technically fair study, off axis views. Normal left ventricular size and systolic function. No regional wall motion abnormalities are seen. Abnormal (paradoxical) septal motion consistent with RV pacemaker. LV ejection fraction is
50-55%. Pacemaker wire present in the right heart. Moderate tricuspid regurgitation. Severe pulmonary hypertension estimated pulmonary artery pressure of 81 mmHg. No prior study for comparison
PFT's: Spirometry 03/23/22-FEV1 1.13 L-42%, FVC 2.16 L, 56%, no significant BD response. Moderate to severe obstruction.
PFT 06/08/22-FEV1 1.99 L-71%, FVC 3.56 L-89%, no significant BD response, TLC 85%, RV 90%, DLCO 37%. Mild obstruction and severe reduction in diffusing capacity.
Spirometry 10/12/22-FEV1 1.66 L-61%, FVC 2.96-77%. Moderate obstruction.
PFT 04/26/23-FEV1 2.12-80%, FVC 4.21-110%, no significant BD response, TLC 97%, RV 81%, DLCO 40%, DLCO/VA 48%. Mild obstruction and moderate reduction in diffusing capacity.
Spirometry 10/05/23-FEV1 1.6-61%, FVC 2.6-69%, no significant BD response. Moderate obstruction.
PFT 05/07/24-FEV1 2.14-82%, FVC 4.2,-112%, no significant BD response, TLC 93%, RV 76%, DLCO 35%, DLCO/VA 41%. Mild obstruction and moderate to severe reduction in diffusing capacity.
Spirometry 11/08/24-FEV1 1.8-69%, FVC 3.16-84%, no significant BD response. Moderate obstruction.
6 minute walk test 03/23/22-Ambulated 650 feet with a desaturation wil 90% maximum heart rate of 74. Maximum dyspnea scale score 1. No supplemental oxygen required.
6 minute walk test 04/26/23-Ambulated 600 feet with a desaturation wil of 94% maximum heart rate of 73. Maximum dyspnea scale score 3. No supplemental oxygen needed.
6 minute walk test 05/07/24-ambulated 600 feet with desaturation wil 89%. Maximum heart rate was 71. Maximum dyspnea scale score 3.0. No supplemental oxygen required.
Reports and relevant images were personally reviewed.
Total time spent on this consultation __48__ minutes which includes review of history, physical exam, medications, laboratory data, personal review of imaging, extensive review of outpatient records, discussion with care team and respiratory therapy.
Discussed with primary team
Subjective Data
-
Date of Service:
Date of Service: December 28, 2024
Chief Complaint: Pulmonary Follow Up
Subjective:
Comfortably walking from bathroom to bed, no acute distress
Review of Systems
Genitourinary: Other (No new symptoms reported )
Objective Data
Data Reviewed
Vital Signs / I&O / Oxygen:
Vital Signs
Temp Pulse Resp BP Pulse Ox
97.5 F 62 18 104/58 96
12/28/24 11:46 12/28/24 11:46 12/28/24 11:46 12/28/24 11:46 12/28/24 11:46
Intake and Output
12/27/24 12/28/24 12/29/24
06:59 06:59 06:59
Intake Total 400 / 400
Balance 400 / 400
SaO2 96
Nasal Cannula flow liters per 2
minute
Physical Exam
General: Comfortable
HEENT: Normocephalic, Anicteric and Moist Mucous Membranes
Cardiovascular: S1-S2 and Regular Rhythm
Respiratory: Non-Labored Respirations and Other (No wheezing or rales on exam )
GI: Soft, Non Distended and Non Tender
Neurology: Awake, Alert, Oriented (to self, place) and No Motor Deficits
Skin: Warm, Dry and Good Color
Labs/Micro/Reports
Lab Data
12/28/24 06:17
12/28/24 06:17
--- NOTE | 2024-12-28 15:15 | CM ---
Addendum entered by Naveed Wynne 12/28/24 16:13:
Due to patient's daughter being unable to transport him home and no support at home w/ new O2, requesting to transport patient home tomorrow morning. Updated hospitalist, agreeable for patient to d/c tomorrow.
Therapy assessed patient, poss skilled rehab. Discussed w/ patient, declined rehab, agreeable to home PT instead
[facility] referral placed in [facility]
Updated [facility] on d/c tomorrow. Portable will still be delivered to bedside today, tank will be delivered to home tomorrow
Plan: D/c home tomorrow w/ O2 and [facility]
Original Note:
Per hospitalist, patient will d/c today. Home O2 assessment ordered. Patient requiring 2L
Patient requested therapy, PT/OT ordered. CM asked if patient is interested in HC, he shared he only needs the oxygen.
CM faxed script and clinicals to [facility], spoke w/ [facility]isa, will deliver portable to hospital
Met w/ patient bedside, aware he needs O2, will arrange for transport home
IMM verbally reviewed, copy given to patient, copy on chart
Plan: Home w/ O2 supplied by [facility]
--- NOTE | 2024-12-28 16:52 | W.PN.HOSP.TC ---
Today's Communication/Plan
-
Assessment / Plan
Assessment / Plan
General: No Apparent Distress, Comfortable and Conversant
HEENT: Nasal cannula in place, Moist mucous membranes, right-sided HOME SERVICE CONSULTANT shunt in place
Respiratory: No accessory muscle use, equal expansion bilaterally
Cardiac: Atrial paced rhythm, heart rate 60
GI: Soft, Non Tender, Non Distended and Normal Bowel Sounds
Musculoskeletal: Lower extremity edema, no deformity
Skin: Warm and dry
: NO Herbert
Neuro: Awake, Alert, Nonfocal/grossly intact
Psych: Calm and Intact Judgment/Insight
Mr. Duckworth is an 84-year-old male with a medical history of COPD, normal pressure hydrocephalus (HOME SERVICE CONSULTANT shunt in place), A-fib (on Xarelto), sick sinus syndrome (PPM), hypertension, CKD stage IIIa, and chronic lower extremity edema who presented with
worsening dyspnea on exertion. He follows closely with his outpatient geotechnical laboratory technician for COPD. He has been intermittently adherent with his Lasix regimen for his lower extremity edema because it is inconvenient to have to urinate so frequently. He
has previously been evaluated for supplemental oxygen needs and was found not to require supplemental oxygen. Recent echo showed preserved ejection fraction with severe pulmonary hypertension and moderate tricuspid regurgitation. He was admitted
for further evaluation and management of suspected acute HFpEF and pulmonary hypertension.
Acute HFpEF:
- Appears compensated, transition back to oral Lasix 40 mg p.o. daily
- Status post right heart cath 12/27 with findings of severe pulmonary hypertension
- Repeat echocardiogram 12/27 showed improved pulmonary artery pressures compared to 12/09/2024 but still elevated at 60 mmHg
- Continue beta-blockade with home metoprolol tartrate 25 mg twice daily
- Appreciate cardiology and pulmonology input
- Supplemental oxygen as needed, qualifies for home oxygen which is being arranged
Pulmonary hypertension:
- Severe on recent echo 12/09/2024
- Rheumatology panel including EMILIANO IgG, scleroderma antibody, and centromere antibody within normal limits
- Currently stable, pulmonology recommends outpatient follow-up for further management
Acute hypoxic respiratory failure:
- Qualifies for home oxygen which is being arranged
COPD:
- Continue scheduled inhalers with additional as needed
A-fib:
- Continue Xarelto and appropriately reduced dose of 15 mg nightly
- Rate and rhythm control with metoprolol tartrate 25 mg p.o. twice daily and sotalol 80 mg p.o. twice daily
Enlarged prostate:
- Continue tamsulosin and finasteride
- Monitor for urinary retention
Ambulatory dysfunction:
- Evaluated by PT/OT, recommend home therapy which is being arranged
CODE STATUS: Full code
Anticipated Discharge: Within 24 hours
Subjective/Interval History
-
Date of Service: December 28, 2024
Patient was seen and examined at bedside this morning. Has been transition to oral Lasix. Patient reports feeling fatigued but breathing more comfortably.
Objective Data
-
Labs:
Laboratory Results
12/28/24
06:17
WBC 9.5
Hgb 16.4
Hct 47.9
Plt Count 176
Sodium 139
Potassium 4.4
Chloride 101
Carbon Dioxide 27
BUN 39 H
Creatinine 1.4 H
Glucose 87
Calcium 9.0
Vital Signs:
Vital Signs
Temp Pulse Resp BP Pulse Ox
97.5 F 62 18 104/58 96
12/28/24 11:46 12/28/24 11:46 12/28/24 11:46 12/28/24 11:46 12/28/24 11:46
I&O
12/27/24 12/28/24 12/29/24
06:59 06:59 06:59
Intake Total 400 / 400
Balance 400 / 400
Review of Systems
-
History Source: Patient
All other systems: Reviewed and negative
Constitutional: Reports Fatigue
Physical Exam
-
General: No Apparent Distress
[2024-12-28] MEDS: XARELTO 15 MG PO (17:46)
[2024-12-28] MEDS: MYLICON 80 MG PO (20:45)
[2024-12-28] MEDS: TYLENOL 325 MG PO (20:45)
[2024-12-28] MEDS: MAG-TAB SR 84 MG PO (20:45)
[2024-12-28] MEDS: XALATAN OPHTHALMIC SOLUTION 1 DROP BOTH EYES (20:45)
[2024-12-29 03:48] VITALS: BP 103/70
[2024-12-29 06:00] VITALS: BMI 23.8
[2024-12-29 07:55] VITALS: BP 108/73
[2024-12-29] MEDS: SPIRIVA RESPIMAT 2.5 MCG 2 PUFF INH (08:13)
[2024-12-29] MEDS: STRIVERDI RESPIMAT 2 PUFF INH (08:14)
[2024-12-29] MEDS: METAMUCIL, KONSYL 1 PACKET PO (08:32)
[2024-12-29] MEDS: THERAGRAN 1 TABLET PO (08:33)
[2024-12-29] MEDS: MIRALAX 17 GRAMS PO (08:33)
[2024-12-29] MEDS: BETAPACE 80 MG PO (08:33)
[2024-12-29] MEDS: VISBIOME 1 CAP PO (08:33)
[2024-12-29] MEDS: NORVASC 2.5 MG PO (08:33)
[2024-12-29] MEDS: LOPRESSOR 25 MG PO (08:33)
[2024-12-29] MEDS: LASIX PO ×2 (08:33→08:45)
[2024-12-29] MEDS: ARICEPT 10 MG PO (08:34)
[2024-12-29] MEDS: COLACE 100 MG PO (08:34)
[2024-12-29] MEDS: PROSCAR 5 MG PO (08:34)
[2024-12-29] MEDS: FLOMAX 0.4 MG PO (08:34)
[2024-12-29] MEDS: VITAMIN B-12 1000 MCG PO (08:34)
[2024-12-29] MEDS: KCL 10 MEQ PO (08:38)
--- NOTE | 2024-12-29 09:45 | W.DCSUMMARY ---
Discharge Summary
Discharge Data
Date of Admission: 12/24/24
Date of Discharge: 12/29/24
-
Pending Results: No
Hospital Course
Mr. 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
worsening dyspnea on exertion. 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 He has been intermittently adherent with his Lasix regimen for his lower extremity edema because it is inconvenient to have to urinate so frequently. He
has previously been evaluated for supplemental oxygen needs and was found not to require supplemental oxygen. Recent echo showed preserved ejection fraction with severe pulmonary hypertension and moderate tricuspid regurgitation. He was admitted
for further evaluation and management of suspected acute HFpEF and pulmonary hypertension.
He diuresed effectively with IV Lasix. VQ scan showed no evidence of pulmonary emboli. Echocardiogram showed improvement in pulmonary artery pressure compared to echo from 12/09/2024 prior to diuresis. Right heart cath showed significantly elevated
right-sided filling pressures and severe pulmonary hypertension with normal pulmonary capillary wedge pressure, elevated SVR and PVR with reduced cardiac output. EMILIANO IgG, scleroderma antibody, and anticentromere antibody serologies were normal. He
clinically improved and was able to be switched back to oral Lasix which he will continue daily. He required low-flow supplemental oxygen while inpatient. He qualified for home oxygen which has been arranged. He was evaluated by PT/OT who
recommended home therapy which is also being arranged.
He was medically stable at the time of hospital discharge. 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
General: No Apparent Distress, Comfortable and Conversant
HEENT: Nasal cannula in place, Moist mucous membranes, right-sided BASKET BOTTOM MACHINE OPERATOR shunt in place
Respiratory: No accessory muscle use, equal expansion bilaterally
Cardiac: Atrial paced rhythm, heart rate 70
GI: Soft, Non Tender, Non Distended and Normal Bowel Sounds
Musculoskeletal: Lower extremity edema, no deformity
Skin: Warm and dry
: NO Herbert
Neuro: Awake, Alert, Nonfocal/grossly intact
Psych: Calm and Intact Judgment/Insight
Discharge Plan
-
Patient Disposition: Home (Routine Discharge)
Discharge Diagnosis/Procedures: Acute HFpEF, pulmonary hypertension
Diet: Low Sodium
Activity: As tolerated
Activity Restrictions/Additional Instructions:
Mr. 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
worsening dyspnea on exertion. 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 He has been intermittently adherent with his Lasix regimen for his lower extremity edema because it is inconvenient to have to urinate so frequently. He
has previously been evaluated for supplemental oxygen needs and was found not to require supplemental oxygen. Recent echo showed preserved ejection fraction with severe pulmonary hypertension and moderate tricuspid regurgitation. He was admitted
for further evaluation and management of suspected acute HFpEF and pulmonary hypertension.
He diuresed effectively with IV Lasix. VQ scan showed no evidence of pulmonary emboli. Echocardiogram showed improvement in pulmonary artery pressure compared to echo from 12/09/2024 prior to diuresis. Right heart cath showed significantly elevated
right-sided filling pressures and severe pulmonary hypertension with normal pulmonary capillary wedge pressure, elevated SVR and PVR with reduced cardiac output. EMILIANO IgG, scleroderma antibody, and anticentromere antibody serologies were normal. He
clinically improved and was able to be switched back to oral Lasix which he will continue daily. He required low-flow supplemental oxygen while inpatient. He qualified for home oxygen which has been arranged. He was evaluated by PT/OT who
recommended home therapy which is also being arranged.
He was medically stable at the time of hospital discharge. 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
Instructions: *[facility] Heart Failure Instructions
Referrals:
Shanta Farris DO [Active] -
Ronaldo Harrell MD [Active] -
Brennan Rome DO [Family Provider] -
Prescriptions:
New
Xarelto 15 mg Tablet
15 mg PO QPM 30 Days Qty: 30 0RF
Continued
umeclidinium-vilanterol [Anoro Ellipta] 62.5-25 mcg/actuation Blister With Device
1 inh INHALATION R DAILY
latanoprost 0.005 % Drops
1 drp BOTH EYES HS
acetaminophen [Tylenol] 325 mg Tablet
325 mg PO HS
sotalol 80 mg Tablet
80 mg PO BID
donepezil 10 mg Tablet
10 mg PO DAILY
cyanocobalamin (vitamin B-12) 1,000 mcg Tablet
1,000 mcg PO DAILY
therapeutic multivitamin Tablet
1 tab PO DAILY
amlodipine [Norvasc] 2.5 mg Tablet
2.5 mg PO DAILY
potassium chloride 10 mEq Tablet Extended Release
10 meq PO SUTUTHSA
docusate sodium [Colace] 100 mg Capsule
100 mg PO QPM
albuterol sulfate 90 mcg/actuation Hfa Aerosol Inhaler
2 puff INHALATION R Q6HPRN PRN (Reason: sob)
finasteride 5 mg Tablet
5 mg PO DAILY
simethicone 80 mg Tablet,Chewable
80 mg PO HS
alfuzosin 10 mg Tablet Extended Release 24 Hr
10 mg PO DAILY
metoprolol tartrate 25 mg Tablet
25 mg PO BID
Visbiome 112.5 billion cell Capsule
1 cap PO DAILY
magnesium glycinate 100 mg Tablet
100 mg PO HS
Changed
furosemide [Lasix] 40 mg Tablet
40 mg PO DAILY 30 Days Qty: 30 0RF
Discontinued
Xarelto 20 mg Tablet
20 mg PO QPM
Discharge Orders:
Discharge Patient (As Directed); Ordered 12/29/24
Ordered By: Toni Morgan
Discharge Date and Time
Print Language: GEORGIAN
--- NOTE | 2024-12-30 12:52 | W.HF.CON ---
Heart Failure
- LV Function
Left ventricular function study result: LV Ejection fraction >/= 50% (ECHO 12/09/24)
Ejection Fraction Percentage: 50-55
- ARNI
Patient already on ARNI: No
Heart Failure ARNI Not Indicated: LV Ejection Fraction >/= 40%
- ACEI/ARB
Patient already on ACEI/ARB: No
Heart Failure ACEI/ARB Not Indicated: LV Ejection Fraction > 40%
- Beta Christian
Patient already on Evidence Based Beta Christian: No
Heart Failure Evidence Based Beta Christian Not Indicated: LV Ejection Fraction > 40%
- Mineralocorticord Receptor Antagonist
Patient already on MRA: No
Heart Failure MRA Not Indicated: LV Ejection Fraction > 40%
- SGLT-2 Inhibitor
Patient already on SGLT-2 Inhibitor: No
Heart Failure SGLT-2 Inhibitor Not Indicated: LV Ejection Fraction >40%
- Afib Anticoagulation
Patient already on Anticoagulation for Afib: Yes
- NYHA CHF Classification
NYHA CHF Classification Level: Class III - Symptoms w/ min exertion, interferes w/ nml daily activity (severe pulmonary HTN)
- ACC/AHA Stage
ACC/AHA Stage: Stage C: Symptomatic Heart Failure
== END 2024-12-29 11:36 | disposition home or self-care (01) | DRG 286 ==
LOC: 4 EAST ACU 15:54
PROVIDERS: Internal Medicine Interventional Cardiology; Physician Assistant Medical; ADMITTING PHYSICIAN Hospitalist; ATTENDING PHYSICIAN Internal Medicine; CONSULT PHYSICIAN Internal Medicine; CONSULT PHYSICIAN Internal Medicine Cardiovascular Disease; EMERGENCY PHYSICIAN Student in an Organized Health Care Education/Training Program; FAMILY PHYSICIAN Family Medicine
PROC: 4A023N6 Measurement of Cardiac Sampling and Pressure, Right Heart, Percutaneous Approach (ICD-10-PCS; 2024-12-27)
PROC: B2141ZZ Fluoroscopy of Right Heart using Low Osmolar Contrast (ICD-10-PCS; 2024-12-27)
DX: I13.0 Hypertensive heart and chronic kidney disease with heart failure and stage 1 through stage 4 chronic kidney disease, or unspecified chronic kidney disease (principal); I50.33 Acute on chronic diastolic (congestive) heart failure; J96.01 Acute respiratory failure with hypoxia; N17.9 Acute kidney failure, unspecified; F03.94 Unspecified dementia, unspecified severity, with anxiety; I27.29 Other secondary pulmonary hypertension; I48.0 Paroxysmal atrial fibrillation; I49.5 Sick sinus syndrome; J44.9 Chronic obstructive pulmonary disease, unspecified; N18.31 Chronic kidney disease, stage 3a; I07.1 Rheumatic tricuspid insufficiency; E87.5 Hyperkalemia; Z79.01 Long term (current) use of anticoagulants; Z91.148 Patient's other noncompliance with medication regimen for other reason; Z95.0 Presence of cardiac pacemaker; Z98.2 Presence of cerebrospinal fluid drainage device; N40.0 Benign prostatic hyperplasia without lower urinary tract symptoms
CPT/HCPCS: 93308; 71046; 71275; 78582; 80048; 80053; 83516; 83880; 84484; 85025; 85652; 86038; 86140; 86235; 93005; 93321; 93325; 93451; 94640; 96374; 97162; 97166; 99285; A9540; A9567; C1894; Q9957; Q9967

== ENCOUNTER 2024-12-30 09:31 | Inpatient (IN) | payer MEDICARE, BC, SELFPAY ==
[2024-12-29 22:06] VITALS: BP 117/71; BMI 24.6
[2024-12-29 22:07] VITALS: BP 117/71
[2024-12-29 22:25] LABS: Hematocrit 50.2 % (39.0-52.0); Hemoglobin 17.2 g/dL (13.0-18.0); Mean Corp Hgb Conc. 34.3 g/dL (33.0-37.0); Mean Corpuscular Hgb 32.5 pg (27.0-31.0); Mean Corpuscular Volume 94.9 fL (80.0-94.0); Mean Platelet Volume 9.9 fL (7.4-10.4); Platelet Count 170 10^3/uL (130-400); Red Blood Cell Count 5.29 10^6/uL (4.70-6.10); Red Cell Dist. Width 13.6 % (11.5-14.5); White Blood Cell Count 8.8 10^3/uL (4.8-10.8)
[2024-12-29 22:36] LABS: Absolute Neutrophils -Man Diff 5.7 10^3/uL (1.4-6.5); Band Neutrophils 0 % (0-3); Eosinophils 6 % (0-6); Lymphocytes 15 % (20-51); Monocytes 14 % (2-9); Platelets Checked Yes; Segmented Neutrophils 65 % (42-75)
[2024-12-29 22:37] LABS: ALT (SGPT) 24 U/L (0-50); AST (SGOT) 27 U/L (17-59); Albumin 3.9 g/dl (3.5-5.0); Alkaline Phosphatase 64 U/L (38-126); Anisocytosis 1+; Blood Urea Nitrogen 43 mg/dl (9-20); Calcium 9.4 mg/dl (8.4-10.2); Carbon Dioxide 32 mmol/L (22-30); Chloride 98 mmol/L (98-107); Estimated Creatinine Clearance 34 ml/min; Glucose 126 mg/dl (70-99); Normal RBC Morphology No; Potassium 4.9 mmol/L (3.5-5.1); Sodium 137 mmol/L (135-145); Total Bilirubin 0.9 mg/dl (0.2-1.3); Total Protein 6.5 g/dl (6.3-8.2); eGFR 36.21
[2024-12-29 22:43] LABS: NT-proBNP 443 pg/ml; Total Cells Counted 100; Troponin I < 0.012 ng/ml
--- NOTE | 2024-12-29 23:01 | ED.GENMED ---
History of Present Illness
<HOLLY Miranda Jr. Last Filed: 12/30/24 16:30>
General
Chief Complaint: Breathing Problem
Source: patient
Exam Limitations: none
Time Seen by Provider: 12/29/24 22:12
Nursing documentation reviewed up to this point in time: agreed with
History of Present Illness
History of Present Illness:
84-year-old male with past medical history of A-fib CHF hypertension pacemaker in place [employer] shunt hydrocephalus history of COPD presenting to the emergency department today with concerns of worsening shortness of breath generalized weakness unable to
ambulate at home. Lives in a private residence. Was recently in the hospital for heart failure and significant shortness of breath. Was discharged this morning home. He has had significant difficulty with daily activity since arriving home.
Review of Systems
<Raj Green Jr., PA-C - Last Filed: 12/30/24 16:30>
Review of Systems
Allergies reviewed?: Yes
All Other Systems: ROS reviewed and negative except as documented in HPI and ROS
Phy Exam
<HOLLY Miranda Jr. Last Filed: 12/30/24 16:30>
Physical Exam
Physical Exam:
GENERAL: Alert , falling asleep mid conversation
EYE: pupils equal and reactive
NECK: Supple, no significant adenopathy.
ENT: o/p clr, mmm.
CARDIAC: Regular rate and rhythm .
LUNGS: Clear breath sounds bilaterally, no acute respiratory distress, no wheezes/rales/rhonchi
ABDOMEN: Soft, without focal tenderness, no r/g, no cvat
NEUROLOGICAL: Alert and oriented, no focal neuro deficits
SKIN: Warm and dry, skin intact.
MUSCULOSKELETAL: No edema, well perfused.
PSYCH: Normal
Scores
<HOLLY Miranda Jr. Last Filed: 12/30/24 16:30>
Heart Failure Risk
Heart Failure Risk Score: Not Applicable
Course
<Raj Green Jr., PA-C - Last Filed: 12/30/24 16:30>
Orders/Labs/Results
Orders:
Orders
12/29/24 22:05
Electrocardiogram (*1) Urgent
Reason for Study: Other
Other Reason for Exam: Respiratory Distress
Cardiac Monitoring- Treatment ONCE
IV Insert/Care/Rem.- Treatment PRN
CR Chest - 2 Views Urgent
Comment:
Reason For Exam: respiratory distress
Pulse Ox/cont/shift [RESP] Urgent
Quantity: 1
Special Instructions: continuous pulse ox
12/29/24 22:13
Complete Blood Count/With Diff Urgent
Comprehensive Metabolic Panel Urgent
Manual Differential Urgent
NT-proBNP Urgent
Troponin I Urgent
12/30/24 01:51
Admit/Transfer Patient As Directed
Co-Sign Provider:
Level of Care: Observation services
Assign to:: Medical/Surgical
Physician / Group: hospitalist
Diagnosis: ambulatory dysfunction
PRN Pain Medication Management As Directed
May give lesser potent ordered pain med per pt: Yes
preference::
Protocol:: Medication orders for pain may be administered in a
manner that supports deferring to patient preference
when the pt is:
- Requesting an ordered lesser potent pain medication.
Least to most potent pain medications are defined
as: acetaminophen < NSAID < tramadol < opioids
(morphine, oxycodone, hydromorphone).
- Requesting a lesser dose of the same medication IF
ORDERED.
- Requesting a less intrusive route of administration
if both routes are prescribed by the provider (PO <
IV).
12/30/24 01:52
Code Status As Directed
Resuscitation Status: Full Code
12/30/24 02:00
Flush (0.9% Sodium Chloride) [Flush (Nss)] See Dose Instructions IV PER PROTOCOL
12/30/24 03:16
Albuterol [ProAIR HFA INHALER] 2 puff INH R Q6HPRN PRN
Bisacodyl [Dulcolax] 10 mg RECTAL [id number] PRN
Docusate W/Senna [Senokot-S] 1 tablet PO BIDPRN PRN
Polyethylene Glycol Powder [Miralax] 17 grams PO DAILYPRN PRN
12/30/24 03:16
Case Management Consult ONCE
Case Management Consult: Discharge Planning
VTE Contraindication Routine
VTE Mechanical Device Contraindication: Medical Contraindication
Pharmocologic Contraindication: Medical Contraindication
Activity As Directed
Activity Level: With Assistance
Vital Signs As Directed
Frequency: Per unit guidelines
O2 Therapy [RESP] Routine
Venturi Mask: 30% FiO2
Titrate/Wean O2 to maintain O2 sat greater than (%): 93
Pt Eval And Treat Routine
Activity Level: With Assistance
12/30/24 03:25
Pt Screening Request from Violet Routine
12/30/24 Breakfast
Regular
At Your Request: Full Participation
Fluid Restriction: 1800 mL/day (60 oz)
12/30/24 08:00
Cyanocobalamin [Vitamin B-12] 1,000 mcg PO DAILY
Donepezil HCl [Aricept] 10 mg PO DAILY
Finasteride [Proscar] 5 mg PO DAILY
Furosemide [Lasix] 40 mg PO DAILY
Lactobac/Bifidobac [Visbiome] 1 cap PO DAILY
Metoprolol [Lopressor] 25 mg PO BID
Multivitamin [Theragran] 1 tablet PO DAILY
Olodaterol HCl [Striverdi Respimat] 2 puff INH R DAILY
Sotalol [Betapace] 80 mg PO BID
Tamsulosin [Flomax] 0.4 mg PO DAILY
Tiotropium Pilot Station 2.5 Mcg [Spiriva Respimat 2.5 Mcg] 2 puff INH R DAILY
12/30/24 08:29
Change in Level of Care [Level of Care Change] As Directed
Level of Care: Inpatient admission
Reason for Hospitalization: Heart Failure
Expected length of stay greater than two midnights?: Yes
ELOS- Estimated Length of Stay in days: 2
I certify the patient meets the requirements for IP care: Yes
12/30/24 18:00
Docusate Sodium [Colace] 100 mg PO QPM
Rivaroxaban [Xarelto] 15 mg PO QPM
12/30/24 22:00
Acetaminophen [Tylenol] 325 mg PO HS
Latanoprost [Xalatan Ophthalmic Solution] 1 drop BOTH EYES HS
Simethicone [Mylicon] 80 mg PO HS
magnesium glycinate 100 mg PO HS
12/31/24 08:00
Potassium Chloride [KCl] 10 meq PO SuTuThSa@0800
Abnormal Lab Results
12/29/24
22:13
MCV 94.9 H fL
(80.0-94.0)
MCH 32.5 H pg
(27.0-31.0)
Lymphocytes (Manual) 15 L %
(20-51)
Monocytes (Manual) 14 H %
(2-9)
Carbon Dioxide 32 H mmol/L
(22-30)
BUN 43 H mg/dl
(9-20)
Creatinine 1.8 H mg/dL
(0.7-1.3)
Glucose 126 H mg/dl
(70-99)
12/29/24 22:13
12/29/24 22:13
Vital Signs
Initial and Last Documented VS:
Initial Vital Signs
Temp Pulse Resp BP Pulse Ox
97.4 F 61 15 117/71 87
12/29/24 22:06 12/29/24 22:06 12/29/24 22:06 12/29/24 22:06 12/29/24 22:06
Last Documented Vital Signs
Temp Pulse Resp BP Pulse Ox
97.8 F 86 20 125/83 95
12/30/24 15:08 12/30/24 15:08 12/30/24 15:08 12/30/24 15:08 12/30/24 15:08
<Sabine Wilson MD - Last Filed: 12/30/24 01:16>
Orders/Labs/Results
Orders:
Orders
12/29/24 22:05
Electrocardiogram (*1) Urgent
Reason for Study: Other
Other Reason for Exam: Respiratory Distress
Cardiac Monitoring- Treatment ONCE
IV Insert/Care/Rem.- Treatment PRN
CR Chest - 2 Views Urgent
Comment:
Reason For Exam: respiratory distress
Pulse Ox/cont/shift [RESP] Urgent
Quantity: 1
Special Instructions: continuous pulse ox
12/29/24 22:13
Complete Blood Count/With Diff Urgent
Comprehensive Metabolic Panel Urgent
Manual Differential Urgent
NT-proBNP Urgent
Troponin I Urgent
12/30/24 01:51
Admit/Transfer Patient As Directed
Co-Sign Provider:
Level of Care: Observation services
Assign to:: Medical/Surgical
Physician / Group: hospitalist
Diagnosis: ambulatory dysfunction
PRN Pain Medication Management As Directed
May give lesser potent ordered pain med per pt: Yes
preference::
Protocol:: Medication orders for pain may be administered in a
manner that supports deferring to patient preference
when the pt is:
- Requesting an ordered lesser potent pain medication.
Least to most potent pain medications are defined
as: acetaminophen < NSAID < tramadol < opioids
(morphine, oxycodone, hydromorphone).
- Requesting a lesser dose of the same medication IF
ORDERED.
- Requesting a less intrusive route of administration
if both routes are prescribed by the provider (PO <
IV).
12/30/24 01:52
Code Status As Directed
Resuscitation Status: Full Code
12/30/24 02:00
Flush (0.9% Sodium Chloride) [Flush (Nss)] See Dose Instructions IV PER PROTOCOL
12/30/24 03:16
Albuterol [ProAIR HFA INHALER] 2 puff INH R Q6HPRN PRN
Bisacodyl [Dulcolax] 10 mg RECTAL [id number] PRN
Docusate W/Senna [Senokot-S] 1 tablet PO BIDPRN PRN
Polyethylene Glycol Powder [Miralax] 17 grams PO DAILYPRN PRN
12/30/24 03:16
Case Management Consult ONCE
Case Management Consult: Discharge Planning
VTE Contraindication Routine
VTE Mechanical Device Contraindication: Medical Contraindication
Pharmocologic Contraindication: Medical Contraindication
Activity As Directed
Activity Level: With Assistance
Vital Signs As Directed
Frequency: Per unit guidelines
O2 Therapy [RESP] Routine
Venturi Mask: 30% FiO2
Titrate/Wean O2 to maintain O2 sat greater than (%): 93
Pt Eval And Treat Routine
Activity Level: With Assistance
12/30/24 03:25
Pt Screening Request from Violet Routine
12/30/24 Breakfast
Regular
At Your Request: Full Participation
Fluid Restriction: 1800 mL/day (60 oz)
12/30/24 08:00
Cyanocobalamin [Vitamin B-12] 1,000 mcg PO DAILY
Donepezil HCl [Aricept] 10 mg PO DAILY
Finasteride [Proscar] 5 mg PO DAILY
Furosemide [Lasix] 40 mg PO DAILY
Lactobac/Bifidobac [Visbiome] 1 cap PO DAILY
Metoprolol [Lopressor] 25 mg PO BID
Multivitamin [Theragran] 1 tablet PO DAILY
Olodaterol HCl [Striverdi Respimat] 2 puff INH R DAILY
Sotalol [Betapace] 80 mg PO BID
Tamsulosin [Flomax] 0.4 mg PO DAILY
Tiotropium Pilot Station 2.5 Mcg [Spiriva Respimat 2.5 Mcg] 2 puff INH R DAILY
12/30/24 08:29
Change in Level of Care [Level of Care Change] As Directed
Level of Care: Inpatient admission
Reason for Hospitalization: Heart Failure
Expected length of stay greater than two midnights?: Yes
ELOS- Estimated Length of Stay in days: 2
I certify the patient meets the requirements for IP care: Yes
12/30/24 18:00
Docusate Sodium [Colace] 100 mg PO QPM
Rivaroxaban [Xarelto] 15 mg PO QPM
12/30/24 22:00
Acetaminophen [Tylenol] 325 mg PO HS
Latanoprost [Xalatan Ophthalmic Solution] 1 drop BOTH EYES HS
Simethicone [Mylicon] 80 mg PO HS
magnesium glycinate 100 mg PO HS
12/31/24 08:00
Potassium Chloride [KCl] 10 meq PO SuTuThSa@0800
Abnormal Lab Results
12/29/24
22:13
MCV 94.9 H fL
(80.0-94.0)
MCH 32.5 H pg
(27.0-31.0)
Lymphocytes (Manual) 15 L %
(20-51)
Monocytes (Manual) 14 H %
(2-9)
Carbon Dioxide 32 H mmol/L
(22-30)
BUN 43 H mg/dl
(9-20)
Creatinine 1.8 H mg/dL
(0.7-1.3)
Glucose 126 H mg/dl
(70-99)
12/29/24 22:13
12/29/24 22:13
Vital Signs
Initial and Last Documented VS:
Initial Vital Signs
Temp Pulse Resp BP Pulse Ox
97.4 F 61 15 117/71 87
12/29/24 22:06 12/29/24 22:06 12/29/24 22:06 12/29/24 22:06 12/29/24 22:06
Last Documented Vital Signs
Temp Pulse Resp BP Pulse Ox
97.8 F 86 20 125/83 95
12/30/24 15:08 12/30/24 15:08 12/30/24 15:08 12/30/24 15:08 12/30/24 15:08
<Raj Green Jr., PA-C - Last Filed: 12/30/24 16:30>
MDM/Problems Addressed
MDM/Problems Addressed:
84-year-old male presenting to the emergency department today with concerns of shortness of breath generalized weakness fatigue unable to care for himself at home. Brought in by ambulance. Recently in the hospital until this morning for CHF
exacerbation. Here patient is falling asleep during my assessment. Pulse ox is in the mid 90s on 4 L nasal cannula. Labs at patient's baseline troponin negative BNP improved from previous. At this point patient seems very fatigued. No specific
acute findings on patient's workup at this time however unsafe to go home. Plan to admit for further monitoring and assessment.
<HOLLY Miranda Jr. Last Filed: 12/30/24 16:30>
*Critical Care Note
Total Time (30-74mins, 75-104mins- exclusive of procedures): Not Applicable
ED Attending Note
<HOLLY Miranda Jr. Last Filed: 12/30/24 16:30>
-
Portions of this chart may have been created with voice recognition software.� Occasional wrong word or��sound alike� substitutions may have occurred due to the inherent limitations of voice recognition software.
<Sabine Wilson MD - Last Filed: 12/30/24 01:16>
ED Attending Note
Patient seen and examined by attending physician: Yes
I performed the substantive portion of visit, reviewed & personally made and approve the management plan that is documented in note by myself or BOB.: Yes
ED Attending Note:
Patient appears sleepy but is arousable and has a nonfocal neurological exam. Patient appears comfortable on 4 L nasal oxygen. Patient has bilateral decreased breath sounds. Abdomen is soft.
Discharge Plan
Departure
Patient Disposition: Admit
Date of Disposition: 12/30/24
Time of Disposition: 00:54
Admit to: Med/Surg
Admit to doctor: Kimmy
Presentation/result/management discussed w/ accepting MD/DO: Hospitalist
Patient with high blood pressure during this ER visit?: No
Condition: Good
Covid-19: Not Applicable
Discharge Problem:
Ambulatory dysfunction
Interventions
Interventions:
*Risk Screen - Suicide Last Done: 12/29/24 22:06
*General Assessment Last Done: 12/29/24 22:06
*Neglect/Abuse Screening Last Done: 12/29/24 22:06
*ED- Fall Risk Assessment Last Done: 12/29/24 22:06
*ED COVID-19 Vaccine History Last Done: 12/30/24 03:13
*Nursing Disposition Last Done: 12/30/24 03:13
ED- Pulmonary Assessment Last Done: 12/29/24 22:11
Discharge Date and Time
Discharge Date/Time: 12/30/24 03:13
[2024-12-29 23:11] VITALS: BP 104/73
[2024-12-30] VITALS (11 sets, daily range): BP systolic 91–133; BP diastolic 59–83; PULSE 60; O2SAT 96–97; BMI 24.6; BMI 24.9; BMI 24.8
--- NOTE | 2024-12-30 01:23 | HPS.HSE ---
Family Physician
-
Family Physician: Brennan Rome
Chief Complaint
-
Ambulatory dysfunction
History of Present Illness
This is a 84-year-old male with past medical history significant for normal pressure hydrocephalus, status post a INPATIENT PHARMACIST shunt, atrial fibrillation on Xarelto, sick sinus syndrome status post pacemaker, CKD stage III, hypertension, COPD not on home O2,
chronic lower extremity edema with diastolic CHF and pulmonary hypertension recently admitted to the emergency department for shortness of breath and found to be in CHF exacerbation.
Patient was diuresed effectively with IV Lasix, VQ scan was negative for pulmonary embolism, echocardiogram showed improvement in pulmonary artery pressure compared to 12 09. He also had a right heart cath which showed elevated right-sided filling
pressures and severe pulmonary hypertension with normal pulmonary capillary wedge pressure. He had serologies that were normal. He was transitioned to oral Lasix and felt stable to be discharged. Patient was discharged on December 29.
On arrival home sent him back to the emergency department saying that patient is unable to ambulate at home and is unsafe there. She refused to allow him to stay at home.
No acute findings in the emergency department
Blood pressure remained stable at 91/64 with a pulse of 60 paced, is satting 98% on room air. Negative troponin and BNP. Chest x-ray is unchanged from prior.
CBC is unremarkable. Electrolytes BUN/creatinine were stable compared to prior.
Medical History
Past Medical History
Past Medical History: Reports Other (atrial fibrillation, sick sinus syndrome status post pacemaker, severe pulm hypertension, COPD, normal pressure hydrocephalus, hypertension, BPH, dementia, with shunt )
Past Surgical History: Reports None
Social History
Tobacco: Non-smoker
Alcohol: None
Drug: None
Family History
Family History: Not pertinent
Allergies / Home Medications
Allergies reflects when Allergies were last updated in [facility].
Home Medications with original date entered in [facility]
Allergy/Medication List:
Allergies
Allergy/AdvReac Type Severity Reaction Status Date / Time
Horse/Equine Containing Allergy Unknown Verified 12/24/24 09:58
Products
Home Medications
Lactobac no.2-Bifidobac no.1-S. thermo 112.5 billion cell capsule (Visbiome) 1 cap PO DAILY 12/24/24
acetaminophen 325 mg tablet (Tylenol) 325 mg PO HS 12/24/24
albuterol sulfate 90 mcg/actuation aerosol inhaler 2 puff inhalation R Q6HPRN PRN sob 12/24/24
alfuzosin 10 mg tablet,extended release 24 hr 10 mg PO DAILY 12/24/24
amlodipine 2.5 mg tablet (Norvasc) 2.5 mg PO DAILY 12/24/24
cyanocobalamin (vitamin B-12) 1,000 mcg tablet 1,000 mcg PO DAILY 12/24/24
docusate sodium 100 mg capsule (Colace) 100 mg PO QPM 12/24/24
donepezil 10 mg tablet 10 mg PO DAILY 12/24/24
finasteride 5 mg tablet 5 mg PO DAILY 12/24/24
furosemide 40 mg tablet (Lasix) 40 mg PO [facility] 12/24/24
latanoprost 0.005 % eye drops 1 drp BOTH EYES 12/24/24
magnesium glycinate 100 mg (as glycinate) tablet 100 mg PO 12/24/24
metoprolol tartrate 25 mg tablet 25 mg PO BID 12/24/24
potassium chloride 10 mEq tablet,extended release 10 meq PO [facility] 12/24/24
rivaroxaban 20 mg tablet (Xarelto) 20 mg PO QPM 12/24/24
simethicone 80 mg chewable tablet 80 mg PO 12/24/24
sotalol 80 mg tablet 80 mg PO BID 12/24/24
therapeutic multivitamin 1 tab PO DAILY 12/24/24
umeclidinium 62.5 mcg-vilanterol 25 mcg/actuation powdr for inhalation (Anoro Ellipta) 1 inh inhalation R DAILY 12/24/24
Review of Systems
-
History Source: Patient and Family
Constitutional: Reports Fatigue and Sleep Disturbance
EENT: Reports No Symptoms
Respiratory: Reports No Symptoms
Cardiac: Reports No Symptoms
Abdomen/GI: Reports No Symptoms
: Reports No Symptoms
Musculoskeletal: Reports No Symptoms
Skin: Reports No Symptoms
Neurological: Reports No Symptoms
Endocrine: Reports No Symptoms
Hematologic/Lymphatic: Reports No Symptoms
Psych: Reports No Symptoms
Physical Exam
Vital Signs
Vital Signs
Temp Pulse Resp BP Pulse Ox
97.4 F 60 16 91/64 91
12/29/24 22:06 12/30/24 00:30 12/30/24 00:30 12/30/24 00:00 12/30/24 00:30
Physical Exam
General: Appears Chronically Ill
HEENT: NormoCephalic, Anicteric, Moist mucous membranes, Atraumatic, PERRLA and Oxygen
Respiratory: Clear
Cardiac: S1/S2 and Regular Rhythm
Breast: Deferred by me
GI: Soft, Non Tender, Non Distended and Normal Bowel Sounds
Rectal: Deferred by Provider
Genito-urinary: Deferred by me
Musculoskeletal: No Clubbing, Edema, Left Lower Extremity (Trace) and Edema, Right Lower Extremity (Trace)
Skin: Warm
Neuro: AO x 3 and Nonfocal/grossly intact
Hematologic/Lymphatic: No Lymphadenopathy
Psych: Calm
Laboratory Results
-
12/29/24 22:13
12/29/24 22:13
Laboratory Results
Total Bilirubin 0.9 mg/dl (0.2-1.3) 12/29/24 22:13
AST 27 U/L (17-59) 12/29/24 22:13
ALT 24 U/L (0-50) 12/29/24 22:13
Alkaline Phosphatase 64 U/L (38-126) 12/29/24 22:13
Troponin I < 0.012 ng/ml 12/29/24 22:13
Data Reviewed
-
Diagnostic Radiology: Image Personally Visualized and interpreted
Medical Tests (Nuc Med, Echo, EKG etc): Image Personally Visualized and interpreted
Lab Data: Labs Reviewed by me
Old Records: Reviewed
Impression/Plan
-
IMPRESSION:
78-year-old with significant cardiac history including pulmonary hypertension, proximal atrial fibrillation, status post pacemaker, COPD not on home O2, history of normal pressure hydrocephalus status post INPATIENT PHARMACIST shunt, hypertension and hyperlipidemia
who presents to the emergency department from home for weakness. Patient was admitted for CHF exacerbation and found to have elevated end-diastolic pressures. Tolerated IV Lasix and was diuresed effectively with improvement in cardiac status
however upon arriving home family decided that he was not physically Will obtain at home by himself. He was return to the emergency department due to ambulatory dysfunction. There is no change in his physical status. The ED workup shows no new or
worsening pulmonary edema, his labs and electrolytes were unchanged from prior. Patient very fatigued and sleepy but otherwise in no acute distress. He is on oxygen but is mostly mouth breathing.
PLAN:
1. CHF -
- Patient with pulm hypertension, and negative serologies, no chronic pulmonary emboli on VQ scan, he is being diuresed currently and will continue with the treatment
-Lasix 40 mg p.o. daily, hold for hypotension
-Check orthostatics
-Follow-up with outpatient cardiology
2. pAFIB
- Sotalol 80 mg p.o. twice daily
� Continue Xarelto 15 mg p.o. every afternoon
� Continue metoprolol 25 mg p.o. twice daily, hold parameters
3. Hypertension
-Hold Norvasc for now
-Continue metoprolol
4 ambulatory dysfunction -generalized weakness, unable to drive at home by himself at this time
-PT evaluation
-Case management
5. COPD -not on home O2, requiring about 2 L of oxygen but mostly mouth breathing
-Will start with a facemask at 28% FiO2 and titrate for O2 sat greater than 92%
- As needed albutero
- continue long acting inhalers
- monitor for home O2 req
DVT prophylaxis -on Xarelto
CODE STATUS�full code
--- NOTE | 2024-12-30 06:47 | W.PN.HOSP.TC ---
Today's Communication/Plan
-
see a/p
Assessment / Plan
Assessment / Plan
Physical Exam
General: Appears Chronically Ill, no acute distress, appears comfortable at this time
HEENT: NormoCephalic, Anicteric, Moist mucous membranes, Atraumatic, PERRLA on NC oxygen supplementation
Respiratory: Clear to auscultation b/l, non-labored respiration
Cardiac: S1/S2 and Regular Rhythm
GI: Soft, Non Tender, Non Distended and Normal Bowel Sounds
Musculoskeletal: No Clubbing, Trace lower ext edema b/l (improved as per patient)
Skin: Warm
Neuro: AO x 3 conversant coherent
Psych: Calm
84M with significant cardiac history including pulmonary hypertension, paroxysmal atrial fibrillation, status post pacemaker, COPD not on home O2, history of [employer] shunt, HTN HLD p/w weakness. Recently admitted for CHF exacerbation. Tolerated IV
Lasix and was diuresed effectively with improvement in cardiac status. Discharged with oxygen supplementation (new). However upon arrival home, family noted that he was too weak take care of himself. Returned to the emergency department due to
severe ambulatory dysfunction. ED workup showed no new or worsening pulmonary edema, his labs and electrolytes were unchanged from prior.
PLAN:
HFpEF
Pulmonary HTN
- Patient with pulm hypertension, and negative serologies, no chronic pulmonary emboli on VQ scan, he is being diuresed currently and will continue with the treatment
-Lasix 40 mg p.o. daily, hold for hypotension
-Check orthostatics
-Follow-up with outpatient cardiology
pAFIB
- Sotalol 80 mg p.o. twice daily
� Continue Xarelto 15 mg p.o. every afternoon
� Continue metoprolol 25 mg p.o. twice daily, hold parameters
Hypertension
-Hold Norvasc for now, BP stable without
-Continue metoprolol and Lasix
Severe Ambulatory dysfunction/Physical deconditioning
-PT/OT eval appreciated SNF rehab
-Case management appreciated
COPD
Pulm Hypertension
Acute Hypoxia/Respiratory Failure
-discharged on 2L
-titrate oxygen supplementation as necessary for goal sat 92%
DVT prophylaxis -on Xarelto
CODE STATUS�full code
Discussed with patient and patient's daughter Jackelyn
I spent a total of 50 minutes with the patient or on the floor. More than 50% of this time involved counseling and coordination of care.
Anticipated Discharge: Within 24 hours
Subjective/Interval History
-
Date of Service: December 30, 2024
No acute distress, sitting up comfortably in bed. Reports feeling 'lousy' otherwise denies current feelings shortness of breath, on 4L Nasal cannula at time of evaluation.
Objective Data
-
Labs:
Laboratory Results
12/29/24
22:13
WBC 8.8
Hgb 17.2
Hct 50.2
Plt Count 170
Sodium 137
Potassium 4.9
Chloride 98
Carbon Dioxide 32 H
BUN 43 H
Creatinine 1.8 H
Glucose 126 H
Calcium 9.4
Total Bilirubin 0.9
AST 27
ALT 24
Alkaline Phosphatase 64
Vital Signs:
Vital Signs
Temp Pulse Resp BP Pulse Ox
97 F 63 18 123/73 94
12/30/24 03:40 12/30/24 03:40 12/30/24 03:40 12/30/24 03:40 12/30/24 03:40
I&O
12/28/24 12/29/24 12/30/24
06:59 06:59 06:59
Intake Total 120 / 120
Output Total 450 / 450
Balance -330 / -330
[2024-12-30] MEDS: STRIVERDI RESPIMAT 2 PUFF INH (08:07)
[2024-12-30] MEDS: SPIRIVA RESPIMAT 2.5 MCG 2 PUFF INH (08:07)
[2024-12-30] MEDS: ARICEPT 10 MG PO (08:33)
[2024-12-30] MEDS: LOPRESSOR 25 MG PO ×2 (08:33→20:20)
[2024-12-30] MEDS: BETAPACE 80 MG PO ×2 (08:33→20:20)
[2024-12-30] MEDS: LASIX 40 MG PO (08:33)
[2024-12-30] MEDS: PROSCAR 5 MG PO (08:33)
[2024-12-30] MEDS: THERAGRAN 1 TABLET PO (08:33)
[2024-12-30] MEDS: FLOMAX 0.4 MG PO (08:33)
[2024-12-30] MEDS: VITAMIN B-12 1000 MCG PO (08:33)
[2024-12-30] MEDS: VISBIOME 1 CAP PO (08:39)
--- NOTE | 2024-12-30 11:23 | CM ---
Addendum entered by Avis Carty 12/30/24 15:53:
Per [facility] can accept when stable.
Prior qualifying admission d/c summary added to [facility].
[facility]
Report# [phone]

Son will transport, please contact when stable for d/c.
Son will update sister.
Addendum entered by Avis Carty 12/30/24 15:43:
PT/OT recommending skilled rehab
Referrals sent for skilled rehab.
(Patients last admission had a 3 night qualifying stay 12/24-12/29)
Plan Skilled rehab once medically stable and bed available.
Addendum entered by Avis Carty 12/30/24 15:01:
[facility] was completed 11:20 am, switched to inpatient, IMM completed 3 pm.
Addendum entered by Avis Carty 12/30/24 14:59:
IMM completed.
Addendum entered by Avis Carty 12/30/24 14:33:
spoke with patients son, he would like patient to go to skilled rehab for short term if necessary. [place] or [place] are the preference.
Will send referrals in case needed.
Oxygen decreased to 3 liters.
Await PT/OT evals.
Original Note:
Patient seen bedside.
Patient stated that he lives in 1 story home with his disabled 48 year old son.
His daughter lives close and she is supportive, also has another son.
Patient has been independent with his ADLs, personal care, dressing and bathing. 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
Patient was recently d/c home with VN and home oxygen thru [employer].
Patient was in [facility] in the past, does n ot want to return.
patient wants to go home and does n ot want oxygen, he does not think he needs it.
Patient has a cane, walker, and w/c in the home for his son.
Pharmacy: [facility]
PCP:Axel Harrell.
Daughter can transport home.
Plan Home with [facility] vs watch for skilled needs, PT/OT candelario (P).
--- NOTE | 2024-12-30 12:03 | RESPNOTE ---
Respiratory: patient's hands are cold poor reading of pulse oximetry on finger, used ear lobe. SpO2 on 3 LPM 92%.
[2024-12-30] MEDS: COLACE 100 MG PO (17:48)
[2024-12-30] MEDS: XARELTO 15 MG PO (17:48)
[2024-12-30] MEDS: CLARITIN 10 MG PO (20:19)
[2024-12-30] MEDS: TYLENOL 325 MG PO (20:20)
[2024-12-30] MEDS: XALATAN OPHTHALMIC SOLUTION 1 DROP BOTH EYES (20:23)
[2024-12-30] MEDS: MYLICON 80 MG PO (20:23)
[2024-12-31 02:52] VITALS: BP 125/75
[2024-12-31 06:00] VITALS: BMI 24.3
[2024-12-31 07:26] VITALS: BP 119/77
[2024-12-31] MEDS: SPIRIVA RESPIMAT 2.5 MCG 2 PUFF INH (07:26)
[2024-12-31] MEDS: STRIVERDI RESPIMAT 2 PUFF INH (07:26)
[2024-12-31 07:51] LABS: Hemoglobin 16.7 g/dL (13.0-18.0); Mean Corp Hgb Conc. 34.1 g/dL (33.0-37.0); Mean Corpuscular Hgb 33.3 pg (27.0-31.0); Mean Corpuscular Volume 97.6 fL (80.0-94.0); Mean Platelet Volume 10.6 fL (7.4-10.4); Platelet Count 164 10^3/uL (130-400); Red Blood Cell Count 5.02 10^6/uL (4.70-6.10); Red Cell Dist. Width 13.6 % (11.5-14.5); White Blood Cell Count 9.9 10^3/uL (4.8-10.8)
[2024-12-31] MEDS: BETAPACE 80 MG PO (07:52)
[2024-12-31] MEDS: FLOMAX 0.4 MG PO (07:53)
[2024-12-31] MEDS: ARICEPT 10 MG PO (07:53)
[2024-12-31] MEDS: LOPRESSOR 25 MG PO (07:53)
[2024-12-31] MEDS: VITAMIN B-12 1000 MCG PO (07:53)
[2024-12-31] MEDS: VISBIOME 1 CAP PO (07:54)
[2024-12-31] MEDS: PROSCAR 5 MG PO (07:54)
[2024-12-31] MEDS: LASIX PO (07:54)
[2024-12-31] MEDS: THERAGRAN 1 TABLET PO (07:54)
[2024-12-31 08:05] VITALS: BP 119/77; BP 125/80; PULSE 62; PULSE 75
--- NOTE | 2024-12-31 08:12 | W.PN.HOSP.TC ---
Addendum entered and electronically signed by Jenae Wood MD 12/31/24 12:43:
acute on chronic HFpEF
Original Note:
Today's Communication/Plan
-
discharge
Assessment / Plan
Assessment / Plan
Physical Exam
General: Appears Chronically Ill, no acute distress, appears comfortable at this time
HEENT: NormoCephalic, Anicteric, Moist mucous membranes, Atraumatic, PERRLA on NC oxygen supplementation
Respiratory: Clear to auscultation b/l, non-labored respiration
Cardiac: S1/S2 and Regular Rhythm
GI: Soft, Non Tender, Non Distended and Normal Bowel Sounds
Musculoskeletal: No Clubbing, Trace lower ext edema b/l (improved as per patient)
Skin: Warm
Neuro: AO x 3 conversant coherent
Psych: Calm
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 Recently admitted for CHF exacerbation. Tolerated IV
Lasix and was diuresed effectively with improvement in cardiac status. Discharged with oxygen supplementation (new). However upon arrival home, family noted that he was too weak take care of himself. Returned to the emergency department due to
severe ambulatory dysfunction. ED workup showed no new or worsening pulmonary edema, his labs and electrolytes were unchanged from prior.
PLAN:
HFpEF
Pulmonary HTN
- Patient with pulm hypertension, and negative serologies, no chronic pulmonary emboli on VQ scan, he is being diuresed currently and will continue with the treatment
-Lasix 40 mg p.o. daily, hold for hypotension
-orthostatics neg for hypotension
-Follow-up with outpatient cardiology
pAFIB
- Sotalol 80 mg p.o. twice daily
� Continue Xarelto 15 mg p.o. every afternoon
� Continue metoprolol 25 mg p.o. twice daily, hold parameters
Hypertension
-Hold Norvasc for now, BP stable without
-Continue metoprolol and Lasix
Severe Ambulatory dysfunction/Physical deconditioning
-PT/OT eval appreciated SNF rehab
-Case management appreciated
COPD
Pulm Hypertension
Acute Hypoxia/Respiratory Failure
-previously discharged on 2L
-titrate oxygen supplementation as necessary for goal sat 92%
-consistently requiring 3L at this time
DVT prophylaxis -on Xarelto
CODE STATUS�full code
Medically stable for discharge SNF rehab with outpatient follow up recommendations.
Discussed with patient and patient's daughter Jackelyn
Total Time Preparing Discharge __40 minutes including examination of the patient, summary of the hospital stay, instructions for continuing care to all relevant caregivers; and preparation of discharge records, prescriptions, and referral
forms if necessary.
Anticipated Discharge: Today
Subjective/Interval History
-
Date of Service: December 31, 2024
no acute distress appears comfortable at this time. reports feeling well. Denies new acute issues. remains on 3L nasal cannula supplementation
Objective Data
-
Labs:
Laboratory Results
12/31/24
07:16
WBC 9.9
Hgb 16.7
Hct 49.0
Plt Count 164
Sodium Pending
Potassium Pending
Chloride Pending
Carbon Dioxide Pending
BUN Pending
Creatinine Pending
Glucose Pending
Calcium Pending
Vital Signs:
Vital Signs
Temp Pulse Resp BP Pulse Ox
98.3 F 64 16 119/77 95
12/31/24 07:26 12/31/24 07:35 12/31/24 07:35 12/31/24 07:52 12/31/24 07:35
I&O
12/30/24 12/31/24 01/01/25
06:59 06:59 06:59
Intake Total 120 / 120 960 / 960
Output Total 450 / 450 1850 / 1850
Balance -330 / -330 -890 / -890
[2024-12-31 08:16] LABS: Blood Urea Nitrogen 44 mg/dl (9-20); Carbon Dioxide 31 mmol/L (22-30); Chloride 101 mmol/L (98-107); Estimated Creatinine Clearance 36 ml/min; Glucose 88 mg/dl (70-99); Magnesium 2.3 mg/dl (1.6-2.3); Phosphorus 3.4 mg/dl (2.5-4.5); Potassium 4.4 mmol/L (3.5-5.1); Sodium 142 mmol/L (135-145)
--- NOTE | 2024-12-31 11:09 | PN.CDI ---
CDI
- -
CDI:
Physician Documentation Request
Admit Date: 12/30/24 09:31
Dear Doctor Nina,
Please review the following and provide your response in the progress notes.
Clinical Indicators:
- 12/29 ER Physician - patient admit with worsening shortness of breath
- 12/30 H&P pmh pulmonary hypertension - home med furosemide 4x/week
- 12/30 PN 'HFpEF'
- Lasix PO daily
- 12/27/24 Echo EF 50-55%
Please clarify which of the following accurately represents the acuity of the HFpEF
Acute HFpEF
Chronic HFpEF
Acute on chronic HFpEF
Other (please specify)
Use of terms such as suspected, likely, concern for, or probable (associated with a specific diagnosis that is being evaluated, monitored, or treated as if it exists) are acceptable and can be coded in the inpatient setting, when documented at the
time of discharge.
Thank you,
Ernestine Bhat RN
CDI Specialist
Please use your independent medical judgment in providing your response.
[2024-12-31 11:47] VITALS: BP 130/81
--- NOTE | 2024-12-31 12:42 | W.DCSUMMARY ---
Discharge Summary
Discharge Data
Date of Admission: 12/30/24
Date of Discharge: 12/31/24
-
Pending Results: No
Discharge Plan
-
Patient Disposition: Correction/SNF
Discharge Diagnosis/Procedures: Heart Failure with Preserved Ejection Fraction
COPD
Pulmonary Hypertension
Acute Hypoxia requiring 3L nasal canal oxygen supplementation
paroxysmal atrial fibrillation
Hypertension
Severe Ambulatory dysfunction/Physical deconditioning
Chronic Kidney Disease Stage III
Post-nasal drip
Condition: Fair
Diet: Restrict fluids to 64 oz
Activity: With assistance, As tolerated and With Walker
Driving Restrictions: Not until seen by your Dr
Bathing Restrictions: None
Blood Work: Repeat BMP with primary care provider in 2-3 days of discharge.
Other Services: PT and OT
Specialty Instructions: Weigh Daily- Call MD for wt gain/loss 3 lbs overnight/5 lbs in 1 week
Activity Restrictions/Additional Instructions:
Loratadine prescribed for post-nasal drip
Amlodipine placed on hold due to low pressures.
Referrals:
Shanta Farris DO [Active] - in two to four weeks
Ronaldo Harrell MD [Active] - in two to four weeks
Brennan Rome DO [Family Provider] - in one week
Prescriptions:
New
loratadine 10 mg Tablet
10 mg PO HS Qty: 7 0RF
Continued
umeclidinium-vilanterol [Anoro Ellipta] 62.5-25 mcg/actuation Blister With Device
1 inh INHALATION R DAILY
latanoprost 0.005 % Drops
1 drp BOTH EYES HS
acetaminophen [Tylenol] 325 mg Tablet
325 mg PO HS
sotalol 80 mg Tablet
80 mg PO BID
donepezil 10 mg Tablet
10 mg PO DAILY
cyanocobalamin (vitamin B-12) 1,000 mcg Tablet
1,000 mcg PO DAILY
therapeutic multivitamin Tablet
1 tab PO DAILY
potassium chloride 10 mEq Tablet Extended Release
10 meq PO SUTUTHSA
docusate sodium [Colace] 100 mg Capsule
100 mg PO QPM
albuterol sulfate 90 mcg/actuation Hfa Aerosol Inhaler
2 puff INHALATION R Q6HPRN PRN (Reason: sob)
finasteride 5 mg Tablet
5 mg PO DAILY
simethicone 80 mg Tablet,Chewable
80 mg PO HS
alfuzosin 10 mg Tablet Extended Release 24 Hr
10 mg PO DAILY
metoprolol tartrate 25 mg Tablet
25 mg PO BID
Visbiome 112.5 billion cell Capsule
1 cap PO DAILY
magnesium glycinate 100 mg Tablet
100 mg PO HS
Xarelto 15 mg Tablet
15 mg PO QPM 30 Days Qty: 30 0RF
furosemide [Lasix] 40 mg Tablet
40 mg PO DAILY 30 Days Qty: 30 0RF
Held
amlodipine [Norvasc] 2.5 mg Tablet
2.5 mg PO DAILY
Hold Instructions: Follow up with primary care provider or cardiology to determine when safe to resume, if necessary to resume, and/or if an alternative agent is required instead.
Discharge Orders:
Discharge Patient (As Directed); Ordered 12/31/24
Ordered By: Jenae Wood
Discharge Date and Time
Print Language: URDU
--- NOTE | 2024-12-31 13:50 | CM ---
Patient has been accepted at [facility] today, patient is new to oxygen and needs ambulance transport. field account manager spoke with admissions at [facility] and they are aware of plan and have a bed for patient today.
[facility]
Report# [phone]

Plan; Patient transfer to [facility] today.
[2024-12-31 14:32] VITALS: BP 137/83
== END 2024-12-31 16:18 | DRG 291 ==
LOC: 4 WEST ACU 09:31
PROVIDERS: ADMITTING PHYSICIAN Internal Medicine; ATTENDING PHYSICIAN Internal Medicine; EMERGENCY PHYSICIAN Emergency Medicine; FAMILY PHYSICIAN Family Medicine
DX: I13.0 Hypertensive heart and chronic kidney disease with heart failure and stage 1 through stage 4 chronic kidney disease, or unspecified chronic kidney disease (principal); I50.33 Acute on chronic diastolic (congestive) heart failure; N18.30 Chronic kidney disease, stage 3 unspecified; I27.20 Pulmonary hypertension, unspecified; J44.9 Chronic obstructive pulmonary disease, unspecified; R09.02 Hypoxemia; I48.0 Paroxysmal atrial fibrillation; I49.5 Sick sinus syndrome; Z95.0 Presence of cardiac pacemaker; Z79.899 Other long term (current) drug therapy; Z79.01 Long term (current) use of anticoagulants; F03.90 Unspecified dementia, unspecified severity, without behavioral disturbance, psychotic disturbance, mood disturbance, and anxiety; N40.0 Benign prostatic hyperplasia without lower urinary tract symptoms; Z98.2 Presence of cerebrospinal fluid drainage device
CPT/HCPCS: 71046; 80048; 80053; 83735; 83880; 84100; 84484; 85025; 85027; 93005; 94640; 97162; 97166; 97535; 99285